=== PATIENT | male | born 1960 | race Caucasian/White ===

== ENCOUNTER 2018-01-24 00:54 | Inpatient (IN) | payer OTHER, MEDICARE ==
[~2018-01-24] VITALS: Ht 188 cm; Wt 143.5 kg
[~2018-01-24 00:54] MED LIST: BUPROPION HCL150 M4 PO; COREG 6.256.25 MG PO; GLUCOPHAGE1000 MG PO; LANTUS INS100 UNITS/ SC; LANTUS SOLOS100 U/ML SC; LASIX40 MG PO; METFORMIN HCL500 MG PO; NORCO 325 MG-101 TAB PO; PRINIVIL 5MG5 MG PO
--- NOTE | 2018-01-24 08:08 | Patient Discharge Instructions ---
Discharge Instructions General Discharge Information You were seen/treated for: Morbid Obesity BMI 41, CHUY, DM, CHF You had these procedures: Surgery Date: 01/24/18 Name of Procedure: Laparoscopic Sleeve Gastrectomy Watch for these problems: FEVER>101.3, INCREASED PAIN, REDNESS/SWELLING/DRAINAGE, DIZZINESS, SHORTNESS OF BREATH, CHEST PAINS No bath, but you may shower: Yes Other wound care: OK TO REMOVE OUTER DRESSINGS. LEAVE WHITE STERI STRIPS IN PLACE. KEEP INCISIONS CLEAN & DRY. Special Instructions: CONTINUE LOVENOX INJECTIONS DIRECTED Diet Continue normal diet: No Recommended Diet: Bariatric Additional DIET Information: WEEKLY BARIATRIC STAGE DIET ADVANCEMENTS TOLERATED, DIRECTED Activity Full Activity/No Limits: No Activity Self Limited: Yes Pounds, do NOT lift more than: 10 Other activity limits: NO HEAVY LIFTING. NO STRENUOUS ACTIVITY. Acute Coronary Syndrome Inclusion Criteria At DC or during hospital stay patient has or had the following: ACS DIAGNOSIS No Discharge Core Measures Meds if any: Prescribed or Continued at Discharge Meds if any: NOT Prescribed or Continued at Discharge Congestive Heart Failure Inclusion Criteria At DC or during hospital stay patient has or had the following: CHF DIAGNOSIS No Discharge Core Measures Meds if any: Prescribed or Continued at Discharge Meds if any: NOT Prescribed or Continued at Discharge Cerebrovascular accident Inclusion Criteria At DC or during hospital stay patient has or had the following: CVA/TIA Diagnosis No Discharge Core Measures Meds if any: Prescribed or Continued at Discharge Meds if any: NOT Prescribed or Continued at Discharge Venous thromboembolism Inclusion Criteria VTE Diagnosis No VTE Type NONE VTE Confirmed by (Test) NONE Discharge Core Measures - Per Current guidelines, there needs to be overlap - treatment for the first 5 days of Warfarin therapy. - If discharged on Warfarin prior to 5 days of - overlap therapy, the patient will need to be - assessed for post discharge needs including - *Post discharge parental anticoagulation - *Warfarin and/or parental anticoagulation education - *Follow up date to check INR post discharge At least 5 days overlap therapy as Inpatient No Meds if any: Prescribed or Continued at Discharge Note: Overlap Therapy is Warfarin and Anticoagulant Meds if any: NOT Prescribed or Continued at Discharge
--- NOTE | 2018-01-24 08:09 | Admission Core Measures ---
Acute Coronary Syndrome (CM) ACS Core Measures Acute Coronary Syndrome Diagnosis No Congestive Heart Failure (NEW) CHF Core Measures Congestive Heart Failure Diagnosis No Cerebrovascular Accident (NEW) CVA Core Measures CVA/TIA Diagnosis No Venous Thromboembolism VTE Core Navin (View Protocol) VTE Risk Factors Surgery No Mechanical VTE Prophylaxis d/t N/A MechProphylax Ordered No VTE Pharm Prophylaxis d/t NA PharmProphylax ordered Problem List As ranked by this Provider includes Assessment & Plan 1. S/P laparoscopic sleeve gastrectomy 2. Morbid obesity 3. Diabetes 4. Hypertension HOME MEDS Home Med List Acetaminophen/Hydrocodone Bi ([place] 325 MG-10 MG) 1 TAB TAB 1 TAB PO 4 TIMES/ DAY PAIN CONTROL (Reported) BUPROPION HCL (Bupropion HCl Sr) 150 MG TABLET.ER 1 TAB PO BID DEPRESSION ( Reported) Carvedilol (Coreg) 6.25 MG TAB 1 TAB PO BID [facility] Furosemide (Lasix) 40 MG TAB 1 TAB PO DAILY [facility] Insulin-Lantus (Lantus Insulin) 100 UNITS/ML MARIYA 0 SC SEE ADMIN CRITERIA Diabetes Lisinopril (Prinivil) 5 MG TAB 1 TAB PO DAILY [facility] Metformin Hydrochloride (Glucophage) 1,000 MG TAB 1 TAB PO BID Diabetes
--- NOTE | 2018-01-24 08:11 | Surg Short-stay <48hrs Dis Sum ---
Visit Information Visit Dates Admission Date: 01/24/18 Discharge Date: 01/25/18 Surgical Short Stay DC Summary Admission Diagnosis: Morbid Obesity (BMI 41), CHUY, DM, CHF Final Diagnosis: same as above, s/p Surgery Date: 01/24/18 Name of Procedure: Laparoscopic Sleeve Gastrectomy Procedure(s): Surgery Date: 01/24/18 Name of Procedure: Laparoscopic Sleeve Gastrectomy Summary/Significant Findings: Electively scheduled laparoscopic sleeve gastrectomy on 01/24/18 by , for history of morbid obesity (BMI 41), CHUY, DM, and CHF. Started on stage 1 bariatric diet post-operatively. Accuchecks were monitored during his hospitalization, while his metformin was being held. Coreg was continued, but his lasix and lisinopril were intentionally held, with close monitoring of his blood pressure. Lovenox teaching was done prior to discharge home, according to his pre-op risk assessment recommendations. He was discharged home once he was tolerating a bariatric diet and pain controlled with oral medications. Condition at Discharge: STABLE Discharge Disposition: home or self care Discharge instructions provided to patient/family: Yes Post discharge follow-up plan: ONE WEEK FOLLOW UP WITH CONTINUE LOVENOX INJECTIONS DAILY, DIRECTED Copies to: Deo HANEY,Wade Vargas
--- NOTE | 2018-01-24 09:38 | Operative Report ---
Operative/Inv Procedure Report Surgery Date: 01/24/18 Name of Procedure: Laparoscopic Sleeve Gastrectomy Pre-Operative Diagnosis: Morbid Obesity BMI 41, CHUY, DM, CHF Post-Operative Diagnosis: Same Estimated Blood Loss: less than 50ml Surgeon/Entertainment Manager: Jorge Dominique DO Anesthesia: general endotracheal tube IV Fluids: 1000 cc Drains: None Specimens: Stomach Complications: None Condition: Stable Operative Indication: This is a 57-year-old male that presented to the office for workup for bariatric surgery. After appropriate workup was completed I discussed with the patient the band, the sleeve, and the gastric bypass. The patient chose to undergo a sleeve gastrectomy. All risks including but not limited to bleeding, infection, leak, stricture, injury to surrounding bowel/esophagus/stomach/liver/spleen, long-term reflux, DVT/PE, and mortality of 09/999 patients were discussed in detail. The patient understood everything and decided to proceed. Operative/Procedure Note Note: The patient was brought to the operating room and placed on the operating room table in supine position. Venodyne stockings were placed and adequate general endotracheal anesthesia was obtained. The patient was prepped and draped in standard surgical fashion. Began the procedure by making a 2 cm transverse incision supraumbilically and slightly to the left of the midline. Then using a 12 mm clear Visiport and a 10 mm 0 laparoscope, the abdominal cavity was accessed. Great care was taken to go through the anterior rectus sheath, the posterior rectus sheath, and through the peritoneum. Once we entered the peritoneum the abdominal cavity was insufflated to 15 mmHg. Upon initial examination no obvious gross pathology was seen. Accessory trocars were placed, 5 mm in the epigastrium for the Marcelino liver retractor. The retractor was inserted and the liver was retracted anteriorly exposing the hiatus, no hiatal hernia was seen. 5 mm ports were placed in the right and left upper quadrant, a 5 mm left lateral port, and a 15 mm right lateral port. Began the procedure by mobilizing the greater curvature of the stomach approximately 7 cm from the pylorus. Once the retrogastric space was reached the whole greater curvature was mobilized maintaining hemostasis using Harmonic scalpel. Full hiatal dissection was performed, no hiatal hernia was seen. Posterior adhesions were taken down using Harmonic scalpel as well. Once the stomach was adequately mobilized a 38 Afghan bougie was inserted and placed along the lesser curvature of the stomach. Once the bougie was in the appropriate position we began creating our sleeve, two 60 mm black staple loads with seamguard followed by three 60 mm purple staple loads with seamguard as well. Great care was taken to leave ample room at the incisura angularis, to prevent any twisting or kinking of the sleeve, to stay lateral to the esophagogastric fat pad, and to do a full fundal excision. At the completion of the staple line the staple line was examined, it appeared intact and no obvious bleeding was noted. The bougie was removed, the sleeve was lying nicely without any twisting or kinking. The resected stomach was removed through the right lateral port site. The port and the left upper quadrant were irrigated until clear. All ports were removed under direct visualization no obvious bleeding was noted. The 15 mm port site fascia was closed using 0 Vicryl suture. The skin was closed using 4-0 Monocryl. Steri-Strips and dressings were placed. The patient was successfully extubated and transferred to the recovery room in stable condition. The patient tolerated the procedure well with no complications. Findings: No hiatal hernia, 38 Fr bougie CC: Wade Desouza MD
[2018-01-24 11:00] VITALS: BP 122/72
[2018-01-24 11:30] VITALS: BP 122/72
[2018-01-24] MEDS ORDERED: LOVENOX40 MG/0.1 SC (12:34)
[2018-01-24] MEDS ORDERED: PROTONIX40 M3 PO (12:34)
--- NOTE | 2018-01-24 13:43 | PN- Bariatrics ---
Subjective Subjective: POST-OP NOTE Reports nausea earlier, but currently only with epigastric discomfort. Reports pain worse with drinking. Out of bed without dizziness. No shortness of breath. No chest pains. Objective Vital Signs and I&Os Vital Signs Date Time Temp Pulse Resp B/P B/P Pulse O2 O2 Flow FiO2 Mean Ox Delivery Rate 01/24 1130 97.5 69 20 122/72 94 Room Air 01/24 1100 94 Room Air 01/24 1100 94 Room Air 01/24 1100 94 Room Air Intake & Output 01/24 1600 01/24 0800 01/24 0000 01/23 1600 01/23 0800 01/23 0000 Intake Total 125 Output Total 0 Balance 125 Intake, IV 125 Intake, Oral 0 Number 0 Bowel Movements Output, Urine 0 Patient 298 lb 309 lb Weight Weight Bed scale Measurement Method Physical Exam: General - alert & oriented. sleepy. comfortable. no acute distress Lungs - clear bilaterally Cardiac - s1s2. reg Abdomen - obese. soft. dressings c/d/i. no drains. expected luis-incisional tenderness Extremities - warm bilaterally. no c/c/e. calves soft and nontender b/l. athrombics active b/l. Current Medications: Current Medications Sig/Shelia Start time Last Medication Dose Route Stop Time Status Admin Acetaminophen 1,000 MG Q6H 01/24 1400 AC N/A 1 UNIT IV 01/25 0814 Bupropion HCl 150 MG BID 01/24 2100 AC PO Carvedilol 6.25 MG BID 01/24 2100 AC PO Cefazolin Sodium 3,000 MG IQ8 01/24 1600 CAN IV 01/25 0001 Cefazolin Sodium 3,000 MG IQ8 01/24 1600 AC Sodium Chloride 100 ML IV 01/25 0029 Cefazolin Sodium 3,000 MG ONCE 01/24 0000 DC IV 01/24 2359 Dextrose/Sodium 1,000 ML Q8H 01/24 1115 AC 01/24 Chloride IV 1154 Heparin Sodium 5,000 UNIT Q8 01/24 1400 AC (Porcine) SC Heparin Sodium 0 .STK-MED ONE 01/24 0716 DC (Porcine) .ROUTE Heparin Sodium 5,000 UNIT ONCE 01/24 0000 DC (Porcine) SC 01/24 2359 Hydrocodone Bitart/ 15 ML Q6P PRN 01/24 1115 AC 01/24 Acetaminophen PO 1152 Insulin Aspart 0 Q6 01/24 1200 AC 01/24 SC 1201 Morphine Sulfate 2 MG Q3P PRN 01/24 1115 AC IV Ondansetron HCl 4 MG Q6P PRN 01/24 1115 AC IV Pantoprazole Sodium 40 MG DAILY 01/25 0900 AC IV Simethicone 40 MG Q6P PRN 01/24 1115 AC PO Assessment/Plan Assessment/Plan This 57 year old male with hx morbid obesity (BMI 41), ART, DM, and CHF, is POD# 0 s/p laparoscopic sleeve gastrectomy stage 1 bariatric diet as tolerated npo pmn for possible upper gi study in am pain control as ordered (iv tylenol / morphine prn / hycet prn) oob/ambulation hep sc - dvt ppx lovenox teaching for home (prescription given pre-op according to risk assessment) accuchecks / ss coverage. hold metformin hold lasix and lisinopril. continue coreg bid (with hold parameters) protonix - gi ppx f/u am labs IST / TRC ?cpap for art will d/w Core Measures Venous Thromboembolism VTE Risk Factors Surgery No Mechanical VTE Prophylaxis d/t N/A MechProphylax Ordered No VTE Pharm Prophylaxis d/t NA PharmProphylax ordered
[2018-01-24 14:03] VITALS: BP 136/62
[2018-01-24 21:08] VITALS: BP 114/70
[2018-01-25 06:42] VITALS: BP 124/74
--- NOTE | 2018-01-25 07:31 | PN- Bariatrics ---
See Addendum Subjective Subjective: Major complaint is epigastric pain. Received Tums over night without relief.Subsequently had Maalox with better improvement. States that morphine wears off within 2 hrs. Ambulated in zhou several times last night. He had stage 1 yesterday but no nausea Objective Vital Signs and I&Os Vital Signs Date Time Temp Pulse Resp B/P B/P Pulse O2 O2 Flow FiO2 Mean Ox Delivery Rate 01/25 0642 97.6 93 18 124/74 91 01/25 0600 Room Air 01/24 2200 94 Room Air 01/24 2116 85 114/70 01/24 2108 99.0 85 18 114/70 92 Room Air 01/24 1600 Room Air 01/24 1420 Room Air 01/24 1403 97.9 72 20 136/62 93 Room Air 01/24 1200 93 Room Air 01/24 1130 97.5 69 20 122/72 94 Room Air 01/24 1100 94 Room Air 01/24 1100 94 Room Air 01/24 1100 94 Room Air Intake & Output 01/25 0800 01/25 0000 01/24 1600 01/24 0800 01/24 0000 01/23 1600 Intake Total 750 1240 515 Output Total 925 0 Balance 750 315 515 Intake, IV 750 1075 500 Intake, Oral 0 165 15 Number 0 0 Bowel Movements Output, Urine 925 0 Patient 316 lb 298 lb 309 lb Weight Weight Bed scale Measurement Method Alert, oriented obese male, no distress. Lungs clear bilat, distant breath sounds COR regular. Abdomen obese, soft, port sites C/D/I.Appropriately tender. Extr. without edema. Assessment/Plan Assessment/Plan 57 y o male with hx of CHF,morbid obesity, DM, HTN, s/p lap. gastric sleeve POD# 1 Stable hemodynamics, acceptable vital signs.Clinically looks well. Major issues is pain /epigastric discomfort, heartburns with some relief with Maalox Will go ahead with UGI series today. I suspect some of pain is related to gas pains. I encouraged increasing ambulation. Cont. IV Tylenol( last dose this morning), cont.oral narcotics( taking for baseline back pain) and morphine q 3 hrs for breakthrough pain.I will add a dose of Toradol this morning. On chemical DVT prophylaxis Will follow blood work results. Periop abx completed. I anticipate discharge later today or tomorrow depending on clinical progression. Core Measures Venous Thromboembolism VTE Risk Factors Surgery No Mechanical VTE Prophylaxis d/t N/A MechProphylax Ordered No VTE Pharm Prophylaxis d/t NA PharmProphylax ordered
[2018-01-25 08:30] LABS: ABSOLUTE BASOPHIL COUNT 0 /CUMM (0.0-0.2); ABSOLUTE EOSINOPHIL COUNT 0 /CUMM (0.0-0.7); ABSOLUTE GRANULOCYTE CT 7.8 /CUMM (1.4-6.5); ABSOLUTE LYMPH COUNT 1.8 /CUMM (1.2-3.4); ABSOLUTE MONOCYTE COUNT 0.8 /CUMM (0.10-0.60); BASOPHIL % 0.2 % (0.0-2.0); EOSINOPHIL % 0.2 % (0-5); HEMATOCRIT 42.7 % (42-52); MEAN CORPUSCULAR HGB 32.8 PG (27.0-31.0); MEAN CORPUSCULAR HGB CONC 34.5 G/DL (33.0-37.0); MEAN CORPUSCULAR VOLUME 95.1 FL (80.0-94.0); MEAN PLATELET VOLUME 8.4 FL (7.4-10.4); PLATELET COUNT 182 /CUMM (130-400); RBC DISTRIBUTION WIDTH 14.6 % (11.5-14.5); RED BLOOD CELL CT 4.49 /CUMM (4.70-6.10); WHITE BLOOD CELL COUNT 10.4 /CUMM (4.8-10.8)
[2018-01-25] MEDS ORDERED: FARXIGA10 M1 PO (11:35)
[2018-01-25] MEDS ORDERED: ENTRESTO 97 MG1 EACH PO (11:36)
[2018-01-25] MEDS ORDERED: TRULICITY1.5 MG/0.5 SC (11:37)
[2018-01-25] MEDS ORDERED: EPLERENONE25 M1 PO (11:38)
[2018-01-25] MEDS ORDERED: LYRICA100 M1 PO (11:38)
[2018-01-25] MEDS ORDERED: HYDROCODON-ACET15 ML PO (11:48)
--- NOTE | 2018-01-25 12:01 | RADIOLOGY REPORT ---
EXAMINATION: FLUOROSCOPY UPPER GI WITH GASTROGRAFIN WITH KUB CLINICAL INFORMATION: 1 day status post gastric sleeve procedure. Postoperative evaluation. COMPARISON: None. TECHNIQUE: A preliminary commercial finance manager view of the abdomen was performed. A limited Gastrografin upper GI study was performed using 30 ml of Gastroview with the patient in the semiupright position. Single spot film and 2 cine fluoroscopy runs were acquired. FINDINGS: The preliminary commercial finance manager view of the abdomen demonstrates postsurgical suture line in the epigastric region. Normal bowel gas pattern is seen without abnormal bowel distention noted. Esophageal distensibility and motility is normal. The GE junction is located below the level of the diaphragm and no GE reflux seen. The remnant gastric pouch is normal with no abnormal distention or contrast leak seen. There is prompt emptying of contrast into the duodenum, which is unremarkable in appearance. FLUOROSCOPY TIME: 23 seconds. IMPRESSION: Unremarkable examination with no evidence of contrast leak or gastric outlet obstruction status post gastric sleeve procedure.
[2018-01-25 14:38] VITALS: BP 140/80
== END 2018-01-25 14:39 | DRG 620 ==
LOC: DELPENDDIS → 2NB 00:54 → SDA 00:54 → ENRESERV 10:21 → ENTRNSPT 10:52 → EDTRNSPT 10:57 → EDTRNSPTSTS 10:57 → 2NB 11:02 → CMPTRNSPT 11:09 → EDTRNSPT 11:09 → ENPENDDIS 01-25 09:47 → ENTRNSPT 01-25 14:26 → 2NB 01-25 14:39 → CMPTRNSPT 01-25 15:08
PROVIDERS: Physician Assistant
PROC: 0DB64Z3 Excision of Stomach, Percutaneous Endoscopic Approach, Vertical (ICD-10-PCS; principal; 2018-01-24)
PROC: 3E0T3BZ Introduction of Anesthetic Agent into Peripheral Nerves and Plexi, Percutaneous Approach (ICD-10-PCS; principal; 2018-01-24)
DX: E66.01 Morbid (severe) obesity due to excess calories (principal); I42.0 Dilated cardiomyopathy; E11.8 Type 2 diabetes mellitus with unspecified complications; I50.9 Heart failure, unspecified; I11.0 Hypertensive heart disease with heart failure; Z68.41 Body mass index [BMI] 40.0-44.9, adult; K76.0 Fatty (change of) liver, not elsewhere classified; I48.91 Unspecified atrial fibrillation; Z79.4 Long term (current) use of insulin; Z79.84 Long term (current) use of oral hypoglycemic drugs; G47.33 Obstructive sleep apnea (adult) (pediatric); E78.5 Hyperlipidemia, unspecified; F32.9 Major depressive disorder, single episode, unspecified
CPT/HCPCS: 2NBP; 36592; 74240; 82436; C9399; J0131; J0690; J1100; J1644; J1885; J2405; J3490; J7042

== ENCOUNTER 2018-02-03 14:10 | Inpatient (IN) | payer OTHER, MEDICARE ==
[~2018-02-03] VITALS: Ht 194.3 cm; Wt 126.6 kg
[~2018-02-03 14:10] MED LIST changes: +ENTRESTO 97 MG1 EACH PO; +EPLERENONE25 M1 PO; +FARXIGA10 M1 PO; +HYDROCODON-ACET15 ML PO; +LOVENOX40 MG/0.1 SC; +LYRICA100 M1 PO; +PROTONIX40 M3 PO; +TRULICITY1.5 MG/0.5 SC
[2018-02-03 15:14] LABS: ABSOLUTE BASOPHIL COUNT 0 /CUMM (0.0-0.2); ABSOLUTE EOSINOPHIL COUNT 0.2 /CUMM (0.0-0.7); ABSOLUTE GRANULOCYTE CT 5.6 /CUMM (1.4-6.5); ABSOLUTE LYMPH COUNT 2.5 /CUMM (1.2-3.4); ABSOLUTE MONOCYTE COUNT 0.8 /CUMM (0.10-0.60); BASOPHIL % 0.5 % (0.0-2.0); GRANULOCYTE % 61.2 % (42.2-75.2); HEMATOCRIT 46.3 % (42-52); MEAN CORPUSCULAR HGB 32.6 PG (27.0-31.0); MEAN CORPUSCULAR HGB CONC 34.4 G/DL (33.0-37.0); MEAN CORPUSCULAR VOLUME 94.8 FL (80.0-94.0); MEAN PLATELET VOLUME 8.4 FL (7.4-10.4); PLATELET COUNT 258 /CUMM (130-400); RBC DISTRIBUTION WIDTH 14.3 % (11.5-14.5); RED BLOOD CELL CT 4.89 /CUMM (4.70-6.10); WHITE BLOOD CELL COUNT 9.2 /CUMM (4.8-10.8)
--- NOTE | 2018-02-03 15:16 | ED AMS/SEIZURE/WEAK/DIZZY ---
History of Present Illness General Chief Complaint: Dizziness Stated Complaint: DIZZINESS Source: patient Exam Limitations: no limitations Vital Signs & Intake/Output Vital Signs & Intake/Output Vital Signs Date Time Temp Pulse Resp B/P B/P Pulse O2 O2 Flow FiO2 Mean Ox Delivery Rate 02/04 0930 84 120/90 06/03 0926 82 120/90 06/03 0800 Room Air 06/03 0635 97.8 79 20 100/70 91 Room Air 06/03 0354 98.2 76 18 102/68 96 Room Air 06/03 0300 98.6 80 20 120/80 94 Room Air 06/02 2309 98.2 82 16 102/68 96 Room Air 06/02 2308 96 Room Air 06/02 2300 98.2 65 18 102/68 96 Room Air 06/02 2232 98.6 78 20 129/71 97 Room Air 06/02 2059 97.6 78 20 127/60 97 Room Air 06/02 1905 78 18 114/60 96 Room Air 06/02 1744 98.8 78 20 103/57 96 Room Air 06/02 1600 75 15 106/58 98 Room Air Room Air 06/02 1507 78 18 84/39 99 Room Air 06/02 1505 98 Room Air 06/02 1456 81 18 92/57 99 Room Air 06/02 1453 81 18 90/52 98 Room Air 06/02 1450 76 58/40 06/02 1414 96.0 82 15 78/52 98 Room Air Room Air ED Intake and Output /03 0000 06/02 1200 Intake Total Output Total 1430 Balance -1430 Output, Urine 1430 Patient 301 lb Weight Weight Bed scale Measurement Method Allergies Coded Allergies: NSAIDS (Non-Steroidal Anti-Inflamma (GASTRIC SLEEVE 02/03/18) Reconcile Medications Bupropion HCl (Bupropion HCl Sr) 150 MG TABLET.ER 1 TAB PO BID DEPRESSION ( Reported) Carvedilol 25 MG TABLET 1.5 TAB PO BID HEART/BP (Reported) Dapagliflozin Propanediol (Farxiga) 10 MG TABLET 1 TAB PO DAILY DM (Reported) Eplerenone 25 MG TABLET 1 TAB PO DAILY BP (Reported) Furosemide 40 MG TABLET 1 TAB PO BID DIURETIC (Reported) Lidocaine 5 % ADH..PATCH 1 PAT TOP DAILY PRN PAIN (Reported) Metformin HCl 500 MG TABLET 1 TAB PO BID DM (Reported) Oxycodone HCl/Acetaminophen (Percocet 7.5-325 MG Tablet) 7.5 MG-325 MG TABLET 1 TAB PO 4 TIMES/DAY PAIN (Reported) Pregabalin (Lyrica) 100 MG CAPSULE 1 CAP PO DAILY PAIN (Reported) OPEN CAPSULE AND TAKE WITH APPLESAUCE OR EQUIVALENT FOOD Sacubitril/Valsartan (Entresto 97 MG-103 MG Tablet) 97 MG-103 MG TABLET 1 TAB PO BID HEART (Reported) Triage Note: PT TO ED WITH FOR LOW BLOOD PRESSURE (50'S SYSTOLIC AT HOME) 79/52 IN TRIAGE. PT RECENTLY ADMITTED TO HOSPITAL FOR GASTRIC SLEEVE. ALSO STARTED ON LASIX FOR CHF. OVER THE LAST TWO DAYS PT HAS HAD LOW BLOOD PRESSURE AND GENERALIZED "I JUST DON'T FEEL WELL." DENIES ABD PAIN OR NAUSEA. AFEBRILE IN TRIAGE. Triage Nurses Notes Reviewed? yes Onset: last night Duration: continues in ED Timing: no prior history No Modifying Factors: none HPI: 55-year-old male presents emergency department with history significant for bariatric surgery about [address] Davies. He has been on a strict liquid diet. Last night he began feeling dizzy and also extremely tired. He had gone to sleep and when he woke up this morning the symptoms continued. His took his blood pressure at home which was 87/55. He has a history of congestive heart failure for which he sees pharmacology associate Dr. Pastrana. He is currently taking carvedilol as a daily medication. In the emergency department he states that the symptoms are continued, he denies any chest pain, shortness of breath, nausea/vomiting. He does admit to having some diarrhea. (Madison BOYCE,[facility]) Past History Travel History Traveled to [place] past 21 day No Medical History Any Pertinent Medical History? see below for history Neurological: NONE EENT: NONE Cardiovascular: CHF, "FAST HEART RATE, LOW BLOOD PRESSURE" Respiratory: NONE Gastrointestinal: GASTRIC SLEEVE Hepatic: NONE Renal: NONE Musculoskeletal: spinal stenosis, CHRONIC BACK PAIN Psychiatric: bipolar disease Endocrine: diabetes Blood Disorders: NONE Cancer(s): NONE BICYCLE MECHANIC/Reproductive: NONE History of MRSA: No History of VRE: No History of CDIFF: No Surgical History Surgical History: BACK SURGERY Psychosocial History Who do you live with Spouse Services at Home None What is your primary language Yakut Tobacco Use: Never used ETOH Use: denies use Illicit Drug Use: denies illicit drug use Family History Family History, If Any: MOTHER FH: diabetes mellitus SISTER FH: diabetes mellitus Hx Contributory? No (Meliza Payne) Review of Systems Review of Systems Constitutional: Reports: see HPI. EENTM: Reports: no symptoms. Respiratory: Reports: no symptoms. Cardiovascular: Reports: see HPI. GI: Reports: see HPI. Genitourinary: Reports: no symptoms. Musculoskeletal: Reports: no symptoms. Skin: Reports: no symptoms. Neurological/Psychological: Reports: no symptoms. Hematologic/Endocrine: Reports: no symptoms. Immunologic/Allergic: Reports: no symptoms. All Other Systems: Reviewed and Negative (Meliza Payne) Physical Exam Physical Exam General Appearance: well developed/nourished, alert, awake, moderate distress Head: atraumatic, normal appearance Eyes: Bilateral: normal appearance. Ears, Nose, Throat: hearing grossly normal Neck: normal inspection, full range of motion Respiratory: normal breath sounds, chest non-tender, no respiratory distress Gastrointestinal: normal bowel sounds, soft, non-tender, post-surgical scars s/p bariatric surgery healing well. Back: normal inspection, normal range of motion Extremities: normal range of motion Neurologic/Psych: no motor/sensory deficits, awake, alert, oriented x 3, normal mood/affect Skin: intact, normal color, warm/dry Core Measures ACS in differential dx? Yes CVA/TIA Diagnosis No Sepsis Present: No Sepsis Focused Exam Completed? No (Meliza Payne) Progress Differential Diagnosis: arrythmia, benign positional vertigo, dehydration, electrolyte imbalance, hypoglycemia, hypotension Plan of Care: Orders Procedure Date/time Status BASIC ELECTROLYTES PLUS BUN&CR 02/05 0600 Active Bariatric Diet - Stage 2 02/04 B Active BASIC ELECTROLYTES PLUS BUN&CR 02/04 1300 Active US-RENAL/KIDNEY 02/04 1126 Active MISSING MEDICATION FORM 02/04 0032 Active Regular Diet 02/03 D Complete Weight 02/03 2247 Active Vital Signs 02/03 2247 Active Teach/Educate 02/03 2247 Active Pain Treatment and Response 02/03 2247 Active Nutritional Intake, Monitor 02/03 2247 Active Isolation 02/03 2247 Active Intake & Output 02/03 2247 Active Patient Care Conference 02/03 2247 Active Activity/Ambulation 02/03 2247 Active URINE OSMOLALITY 02/03 2111 Active URINE LYTES, SPOT 02/03 2111 Active Patient Data 02/03 2103 Active FingerStick- Glucose 02/03 1935 Active Pathway - chart 02/03 1848 Active House Staff 02/03 1848 Active Patient Data 02/03 1848 Active LACTIC ACID 02/03 1755 Active Patient Data 02/03 1741 Active Patient Data 02/03 1725 Active OXYGEN SETUP (GEN) 02/03 1611 Active Saline Lock 02/03 1611 Active Admit to inpatient 02/03 1611 Active Vital Signs 02/03 1611 Active Activity/Ambulation 02/03 1611 Active Code Status 02/03 1611 Active Add-on Test (ER Only) 02/03 1504 Active SERUM OSMOLALITY 02/03 1501 Complete ACETONE 02/03 1501 Complete TROPONIN LEVEL 02/03 1455 Complete MAGNESIUM 02/03 1455 Complete LIPASE 02/03 1455 Complete LACTIC ACID 02/03 1455 Complete COMPREHENSIVE METABOLIC PANEL 02/03 1455 Complete CBC WITHOUT DIFFERENTIAL 02/03 1455 Complete B-TYPE NATRIURETIC PEP (BNP) 02/03 1455 Complete AMYLASE 02/03 1455 Complete Intake & Output 02/03 1440 Active EKG 02/03 1418 Active Lab Add-on Test 02/03 UNK Active VTE Mechanical Prophylaxis 02/03 UNK Active Vital Signs 02/03 UNK Complete Telemetry/Dielectric Testing Machine Operator 02/03 UNK Active Intake & Output 02/03 UNK Complete FingerStick- Glucose 02/03 UNK Complete Current Medications Sig/Shelia Start time Last Medication Dose Stop Time Status Admin Insulin Aspart 0 TIDAC 02/04 0800 AC (NovoLOG) Oxycodone HCl 7.5 MG Q6P PRN 02/04 0430 AC 02/04 (Roxicodone) 1034 Acetaminophen 1,000 MG Q6P PRN 02/04 0030 AC 02/04 (Ofirmev) 02/05 0029 0646 N/A 1 UNIT (No Carrier) Heparin Sodium 5,000 UNIT Q8 02/03 2200 AC 02/04 (Porcine) 0647 Bupropion HCl 150 MG BID 02/03 2100 AC 02/04 (Wellbutrin SR) 0923 Magnesium Sulfate 2 GM ONCE ONE 02/03 1615 CAN 02/03 1630 Laboratory Tests 02/04/18 1310: Sodium Pending, Potassium Pending, Chloride Pending, Carbon Dioxide Pending, Anion Gap Pending, BUN Pending, Creatinine Pending, BUN/Creatinine Ratio Pending 02/03/18 2111: Urine Color Cancelled, Urine Clarity Cancelled, Urine pH Cancelled, Ur Specific [place] Cancelled, Urine Protein Cancelled, Urine Ketones Cancelled, Urine Nitrite Cancelled, Urine Bilirubin Cancelled, Urine Urobilinogen Cancelled, Ur Leukocyte Esterase Cancelled, Ur Microscopic Cancelled, Urine Hemoglobin Cancelled, Urine Glucose Cancelled 02/03/18 1501: Anion Gap 17 H, Estimated GFR 37 L, BUN/Creatinine Ratio 13.2, Glucose 140 H, Serum Osmolality 295, Lactic Acid 1.1, Calcium 9.7, Magnesium 1.2 L, Total Bilirubin 1.1, AST 32, ALT 49, Alkaline Phosphatase 43, Troponin I < 0.01, Pro-B -Natriuretic Pept 195 H, Total Protein 7.2, Albumin 4.2, Globulin 3.0, Albumin/ Globulin Ratio 1.4, Amylase 44, Lipase 61, CBC w Diff NO MAN DIFF REQ, RBC 4.89, MCV 94.8 H, MCH 32.6 H, MCHC 34.4, RDW 14.3, MPV 8.4, Gran % 61.2, Lymphocytes % 27.1, Monocytes % 9.2, Eosinophils % 2.0, Basophils % 0.5, Absolute Granulocytes 5.6, Absolute Lymphocytes 2.5, Absolute Monocytes 0.8 H, Absolute Eosinophils 0.2, Absolute Basophils 0, Acetone Level NEGATIVE 58-year-old male presented to the emergency department reporting bariatric surgery with Dr. Davies just over a week ago. He has been on a liquid diet. He had reported last night in dizzy and tired, and this morning his checked his blood pressure which was 87/55. In the emergency department his blood pressure was 50/40 and he was started on IV fluids. Patient requesting percocet at bedside d/t chronic back pain for which he didn't take his daily percocet today. D/t pressures, given patient tylenol IV. Mg low at 1.2 - patient given mag IV and also started on NS 125ml/hr. Bloodwork reveals acute kidney injury BUN 25, Cr 1.9, GFR 37. Spoke with hospitalist and admitting to the floor. Spoke with MOD Dr. Hernadez. who is aware. Patient and aware of plan. Diagnostic Imaging: Viewed by Me: Radiology Read. Discussed w/RAD: Radiology Read. Radiology Impression: PATIENT: NALLELY MAYNARD III PRESENT AGE: 58 PATIENT ACCOUNT NO: [id number] : 60 LOCATION: [facility] ORDERING PHYSICIAN: Meliza BOYCE SERVICE DATE: 02/03/185418 EXAM TYPE: RAD - XRY-PORTABLE CHEST XRAY EXAMINATION: XR PORTABLE CHEST CLINICAL INFORMATION: Dehydration. Fatigue and dizziness. COMPARISON: Chest x-ray from . TECHNIQUE: Portable frontal view of the chest was obtained. FINDINGS: The lower portion of the left lung is excluded from view. The imaged portions of the lungs are aerated. No obvious pleural effusions are seen, though assessment is again limited due to incomplete visualization of the costophrenic sulci. The cardiac silhouette remains prominent. Mediastinal contours are normal. No acute osseous abnormality is seen. IMPRESSION: Slightly limited study with incomplete visualization of the costophrenic sulci and lower portion of the left lung base. Otherwise, no acute process. DICTATED BY: Wade Garcia MD DATE/TIME DICTATED :02/03/181622 WAITSTAFF CAPTAIN:INDER DATE/TIME TRANSCRIBED:02/03/181622 CONFIDENTIAL, DO NOT COPY WITHOUT APPROPRIATE AUTHORIZATION. < Electronically signed in Other Vendor System> SIGNED BY: Wade Garcia MD 02/03/181628 Initial ED EKG: normal axis, normal sinus rhythm (Meliza Payne) Departure Departure Disposition: STILL A PATIENT Condition: Stable Clinical Impression Primary Impression: Acute kidney injury Referrals: Wade Desouza MD (PCP/Family) Departure Forms: Customer Survey General Discharge Information Admission Note Documentation of Exam: Documentation of any treatments & extenuating circumstances including Concerns Regarding Discharge (functional status, medication knowledge or non-compliance, living conditions, etc.) that warrant an admission rather than observation: [ acute kidney injury, hypomagnesemia] (Meliza Payne) PA/REPORTING PROCESS CONSULTANT Co-Sign Statement Statement: ED Attending supervision documentation- x I saw and evaluated the patient. I have also reviewed all the pertinent lab results and diagnostic results. I agree with the findings and the plan of care as documented in the PA's/REPORTING PROCESS CONSULTANT's documentation. Weak poor oral intake on furosemide with hypotension, ALCIDES [] I have reviewed the ED Record and agree with the PA's/REPORTING PROCESS CONSULTANT's documentation. [] Additions or exceptions (if any) to the PAs/REPORTING PROCESS CONSULTANT's note and plan are summarized below: [] (Dev HANEY,Derek)
--- NOTE | 2018-02-03 16:29 | RADIOLOGY REPORT ---
EXAMINATION: XR PORTABLE CHEST CLINICAL INFORMATION: Dehydration. Fatigue and dizziness. COMPARISON: Chest x-ray from 01/16/2018. TECHNIQUE: Portable frontal view of the chest was obtained. FINDINGS: The lower portion of the left lung is excluded from view. The imaged portions of the lungs are aerated. No obvious pleural effusions are seen, though assessment is again limited due to incomplete visualization of the costophrenic sulci. The cardiac silhouette remains prominent. Mediastinal contours are normal. No acute osseous abnormality is seen. IMPRESSION: Slightly limited study with incomplete visualization of the costophrenic sulci and lower portion of the left lung base. Otherwise, no acute process.
[2018-02-03] MEDS ORDERED: CARVEDILOL6.25 M1 PO (16:53)
[2018-02-03] MEDS ORDERED: LIDOCAINE1 EACH TOP (16:54)
[2018-02-03] MEDS ORDERED: METFORMIN HCL500 M3 PO (16:54)
[2018-02-03] MEDS ORDERED: EPLERENONE25 M1 PO (16:55)
[2018-02-03] MEDS ORDERED: FARXIGA10 M1 PO (16:55)
[2018-02-03] MEDS ORDERED: FUROSEMIDE40 M1 PO (16:56)
[2018-02-03] MEDS ORDERED: CARVEDILOL25 M1 PO (16:56)
[2018-02-03] MEDS ORDERED: ENTRESTO 97 MG1 EACH PO (16:56)
[2018-02-03] MEDS ORDERED: PERCOCET 7.5-31 EACH PO (16:56)
--- NOTE | 2018-02-03 18:15 | History & Physical ---
General Information and HPI Allergies/Medications Allergies: Coded Allergies: NSAIDS (Non-Steroidal Anti-Inflamma (GASTRIC SLEEVE 02/03/18) Home Med list Bupropion HCl (Bupropion HCl Sr) 150 MG TABLET.ER 1 TAB PO BID DEPRESSION ( Reported) Carvedilol 25 MG TABLET 1.5 TAB PO BID HEART/BP (Reported) Dapagliflozin Propanediol (Farxiga) 10 MG TABLET 1 TAB PO DAILY DM (Reported) Eplerenone 25 MG TABLET 1 TAB PO DAILY BP (Reported) Furosemide 40 MG TABLET 1 TAB PO BID DIURETIC (Reported) Lidocaine 5 % ADH..PATCH 1 PAT TOP DAILY PRN PAIN (Reported) Metformin HCl 500 MG TABLET 1 TAB PO BID DM (Reported) Oxycodone HCl/Acetaminophen (Percocet 7.5-325 MG Tablet) 7.5 MG-325 MG TABLET 1 TAB PO 4 TIMES/DAY PAIN (Reported) Pregabalin (Lyrica) 100 MG CAPSULE 1 CAP PO DAILY PAIN (Reported) OPEN CAPSULE AND TAKE WITH APPLESAUCE OR EQUIVALENT FOOD Sacubitril/Valsartan (Entresto 97 MG-103 MG Tablet) 97 MG-103 MG TABLET 1 TAB PO BID HEART (Reported) Past History Travel History Traveled [facility] past 21 day No Medical History Neurological: NONE EENT: NONE Cardiovascular: CHF, "FAST HEART RATE, LOW BLOOD PRESSURE" Respiratory: NONE Gastrointestinal: GASTRIC SLEEVE Hepatic: NONE Renal: NONE Musculoskeletal: spinal stenosis, CHRONIC BACK PAIN Psychiatric: bipolar disease Endocrine: diabetes Blood Disorders: NONE Cancer(s): NONE THERAPIST/Reproductive: NONE History of MRSA: No History of VRE: No History of CDIFF: No Surgical History Surgical History: BACK SURGERY Past Family/Social History Family History Relations & Conditions if any MOTHER FH: diabetes mellitus SISTER FH: diabetes mellitus Psychosocial History Who Do You Live With? spouse Services at Home: None ETOH Use: denies use Illicit Drug Use: denies illicit drug use Functional Ability ADLs Independent: dressing, eating, toileting, bathing. Ambulation: independent IADLs Independent: shopping, housework, finances, food prep, telephone, transportation , medication admin. Core Measures/Misc (05/21) Cerebrovascular Accident CVA/TIA Diagnosis: No Sepsis (View protocol) If YES complete Sepsis Event Note If YES complete Sepsis Event Note
--- NOTE | 2018-02-03 18:45 | History & Physical ---
Mp HANEY,April 02/03/18 1838: General Information and HPI MD Statement: I have seen and personally examined NALLELY COOLEY III and documented this H&P. The patient is a 58 year old M who presented with a patient stated chief complaint of [low bp at home]. Source of Information: patient, family, old records Exam Limitations: no limitations History of Present Illness: This is a 50-year-old male with past medical history of HFrEF with EF 30-35, dilated cardiomyopathy no ICD on Entresto, morbid obesity status post lap gastric sleeve in January 2018, chronic back pain, diabetes, and hypertension. Patient was brought in by his to the ED for chief complaint of low blood pressures, reportedly systolic in the 70s-60s. Per pt he measures BP on a daily basis and yesterday he noted a double digit BP (around 90s systolic) for the first time since surgery. He usually runs around 120/80. He also noted some malaise, and weakness. When he woke up this morning he had BPs in 70s and then noted it dropping even further. She called Dr. Ramires's office but when the BP started dropping further she brought pt to ED. Since his sleeve pt has been on prescribed bariatric diet which is limited to liquids, he has lost over 30 lbs recently. He recently re-started his furosemide 40mg BID on MondayJanuary 29. He used to take lasix regularly but after surgery he was stopped temporarily. Only other med change has been the stopping of his diabetic medication othe than 500mg of metformin BID after sleeve. In triage he was noted to have blood pressure 79/52 and 58/40. Pt denies WHITE, no nausea, vomiting, abdomial pain, change in bladder or bowel movement, hematuria, hematochezia, change in appetite, recent illness, chest pain, palpitations, SOB, or LE edema. He does endorse dizziness, some blurry vision, malaise, and weakness. Soc hx pertinent for hx cocaine use 10 yrs ago, social etoh use and hx 10-15 ppd smoking hx and quit 3 yrs ago. Allergies/Medications Allergies: Coded Allergies: NSAIDS (Non-Steroidal Anti-Inflamma (GASTRIC SLEEVE 02/03/18) Home Med list Bupropion HCl (Bupropion HCl Sr) 150 MG TABLET.ER 1 TAB PO BID DEPRESSION ( Reported) Carvedilol 25 MG TABLET 1.5 TAB PO BID HEART/BP (Reported) Dapagliflozin Propanediol (Farxiga) 10 MG TABLET 1 TAB PO DAILY DM (Reported) Eplerenone 25 MG TABLET 1 TAB PO DAILY BP (Reported) Furosemide 40 MG TABLET 1 TAB PO BID DIURETIC (Reported) Lidocaine 5 % ADH..PATCH 1 PAT TOP DAILY PRN PAIN (Reported) Metformin HCl 500 MG TABLET 1 TAB PO BID DM (Reported) Oxycodone HCl/Acetaminophen (Percocet 7.5-325 MG Tablet) 7.5 MG-325 MG TABLET 1 TAB PO 4 TIMES/DAY PAIN (Reported) Pregabalin (Lyrica) 100 MG CAPSULE 1 CAP PO DAILY PAIN (Reported) OPEN CAPSULE AND TAKE WITH APPLESAUCE OR EQUIVALENT FOOD Sacubitril/Valsartan (Entresto 97 MG-103 MG Tablet) 97 MG-103 MG TABLET 1 TAB PO BID HEART (Reported) Compliance With Home Meds: UNKNOWN Past History Travel History Traveled to [facility] past 21 day No Medical History Neurological: NONE EENT: NONE Cardiovascular: CHF, "FAST HEART RATE, LOW BLOOD PRESSURE" Respiratory: NONE Gastrointestinal: GASTRIC SLEEVE Hepatic: NONE Renal: NONE Musculoskeletal: spinal stenosis, CHRONIC BACK PAIN Psychiatric: bipolar disease Endocrine: diabetes Blood Disorders: NONE Cancer(s): NONE HOSPITALITY TEAM MEMBER/Reproductive: NONE History of MRSA: No History of VRE: No History of CDIFF: No Surgical History Surgical History: BACK SURGERY Past Family/Social History Family History Relations & Conditions if any MOTHER FH: diabetes mellitus SISTER FH: diabetes mellitus Psychosocial History Who Do You Live With? spouse Services at Home: None ETOH Use: denies use Illicit Drug Use: denies illicit drug use Functional Ability ADLs Independent: dressing, eating, toileting, bathing. Ambulation: independent IADLs Independent: shopping, housework, finances, food prep, telephone, transportation , medication admin. Review of Systems Review of Systems Constitutional: Reports: see HPI. Exam & Diagnostic Data Last 24 Hrs of Vital Signs/I&O Vital Signs Date Time Temp Pulse Resp B/P B/P Pulse O2 O2 Flow FiO2 Mean Ox Delivery Rate 02/03 1744 98.8 78 20 103/57 96 Room Air 02/03 1600 75 15 106/58 98 Room Air Room Air 02/03 1507 78 18 84/39 99 Room Air 02/03 1505 98 Room Air 02/03 1456 81 18 92/57 99 Room Air / 1453 81 18 90/52 98 Room Air / 1450 76 58/40 06/02 1414 96.0 82 15 78/52 98 Room Air Room Air Intake & Output 02/03 1600 06/02 0800 06/ 0000 Intake Total Output Total Balance Patient 130.635 kg Weight Weight Reported by Patient Measurement Method Physical Exam General Appearance Alert, Oriented X3, Cooperative, No Acute Distress Skin No Significant Lesion HEENT Atraumatic, PERRLA, EOMI Neck Supple Cardiovascular Regular Rate, Normal S1, Normal S2, No Murmurs Lungs Normal Air Movement Abdomen Soft, No Tenderness, 2 well healing incisions on mid and r. abd. ecchymosis on RLQ. Neurological Normal Speech, Strength at 5/5 X4 Ext, Normal Tone Extremities No Edema, Normal Pulses Last 24 Hrs of Labs/Gwyn: Laboratory Tests 02/03/18 1501: Anion Gap 17 H, Estimated GFR 37 L, BUN/Creatinine Ratio 13.2, Glucose 140 H, Lactic Acid 1.1, Calcium 9.7, Magnesium 1.2 L, Total Bilirubin 1.1, AST 32, ALT 49, Alkaline Phosphatase 43, Troponin I < 0.01, Ciq-P-Wncdeuqlabf Pept 195 H, Total Protein 7.2, Albumin 4.2, Globulin 3.0, Albumin/Globulin Ratio 1.4, Amylase 44, Lipase 61, CBC w Diff NO MAN DIFF REQ, RBC 4.89, MCV 94.8 H, MCH 32.6 H, MCHC 34.4, RDW 14.3, MPV 8.4, Gran % 61.2, Lymphocytes % 27.1, Monocytes % 9.2, Eosinophils % 2.0, Basophils % 0.5, Absolute Granulocytes 5.6, Absolute Lymphocytes 2.5, Absolute Monocytes 0.8 H, Absolute Eosinophils 0.2, Absolute Basophils 0 Assessment/Plan Assessment: ASSESSMENT:This is a 50-year-old male with past medical history of HFrEF with EF 30-35, dilated cardiomyopathy no ICD on Entresto, morbid obesity status post lap gastric sleeve in January 2018 who comes in for CC of malaise and hypotension. Anthony BP measured in ED was 58/40 and Cr was up to 1.9. I suspect that his hypotension precipitated a pre-renal state which was exacerbated by metformin and ARB. The etiology of his hypotension is likely due to a combination of recent surgery and decreased PO intake, the re-introduction of Lasix and increased urine output. VITALS: temp 96.8-98.8, pulse 76-82, RR15-20, blood pressure 84/39 to 106/58, satting 90% on room air Echocardiogram in December 2016 shows moderate left ventricular dilatation, mild concentric LV EF 30-35, stage I diastolic dysfunction. Mild left atrial dilatation, and mild mitral annular calcification with mild thickening of mitral valve leaflets. Labs: Normal CBC. BEP: BUN 25, creatinine 1.9, and ion gap 17, negative lactic acid, magnesium 1.2 , BNP 195, negative amylase and lipase, negative LFTs. Chest x-ray shows limited study with incomplete visualization of the costophrenic sulci and lower portion left lung base. No acute process noted. PLAN: Hypotension: Resolved with 2 bags IVF. Given low EF will stop at this point and encourage PO intake. If his BP continues to be low will give add'l fluid * Q4 BP * Hold all anti-hypertensives Ventricular ectopy: EKG shows trigemini and pt had frequent PVC on monitor. He states he doesn't have hx of abnml heart rhythm. He follows with Dr. Mak Ramires for HF. Mag was 1.2 on admission. * Monitor on Tele * Replete mag * Monitor electrolytes ALCIDES: Likely pre-renal. If does not improve with IVF can consider renal US. * Uosm * Sosm * Ulytes/FeNa Anion gap: Gap is 17. DDX likely renal failure. less likely DKA but will add acetone to labs. * Monitor BEP * Recheck labs in 4 hrs Depression: * Continue bupropion 150 mg daily CAD/hypertension: * Hold carvedilol 25 mg, 1.5 tab by mouth twice a day * Hold Epleronone * Hold Entresto Diabetes: * Hold metformin * Regular insulin sliding scale * Diabetic diet * FS * Check acetone Neuropathic pain/Back pain: * Hold Lyrica * he takes 7.5 of percocet 4x/day. Will hold off at this time. Bariatric diet FC Chem ppx As Ranked By This Provider Problem List: 1. S/P laparoscopic sleeve gastrectomy 2. Acute kidney injury Core Measures/Misc (05/21) Acute Coronary Syndrome ACS Diagnosis: No Congestive Heart Failure Congestive Heart Failure Diagnosis No Cerebrovascular Accident CVA/TIA Diagnosis: No VTE (View Protocol) VTE Risk Factors Acute Medical Illness No Mechanical VTE Prophylaxis d/t N/A MechProphylax Ordered No VTE Pharm Prophylaxis d/t NA PharmProphylax ordered Sepsis (View protocol) Sepsis Present: No If YES complete Sepsis Event Note If YES complete Sepsis Event Note Diomedes Mart MD 02/03/18 2158: Core Measures/Misc (05/21) Sepsis (View protocol) If YES complete Sepsis Event Note If YES complete Sepsis Event Note Attending MD Review Statement Attending Statement Attending MD Statement: examined this patient, discuss w/resident/PA/METAL ORGAN PIPE MAKER, agreed w/resident/PA/METAL ORGAN PIPE MAKER, discussed with nursing Attending Assessment/Plan: Mr. Cooley is a 58-year-old male with history of dilated cardiomyopathy with EF of 30-35%, on interest though, recent gastric sleeve surgery last month, chronic back pain, diabetes hypertension presents with complaints of low blood pressures recorded at home. Patient has been holding this furosemide since surgery, however that was recently restarted. On examination, initial blood pressure on arrival was systolic 70s to 80s, diastolic blood pressure in the 50s to 60s, however after IV fluid administration blood pressure improved to about systolic blood pressure 120. Heart rate of 78 afebrile saturating 90% on room air Assessment 1. Hypotension - that was symptomatic with lightheadedness dizziness 2. Acute kidney injury 3. Anion gap metabolic acidosis 4. Heart failure with reduced ejection fraction 5. Diabetes mellitus 6. S/P Gastric sleeve surgery 1 week ago 7. Ventricular trigeminy Plan Admit to telemetry Holding off on further IVF administration. Blood pressure better. Holding home antihypertensives (can be initiated once BP better in the AM). Avoid nephrotoxic medications. Will follow up on Uosm and Sosm and repeat BEP. Will consider Renal USG Will obtain Cardiology consultation. Inform Bariatric surgery team about his admission - patient has a post op appointment with Dr. Davies on monday Heparin for DVT prophylaxis
[2018-02-03 23:00] VITALS: BP 102/68
[2018-02-03 23:09] VITALS: BP 102/68
[2018-02-04] VITALS (7 sets, daily range): BP systolic 100–120; BP diastolic 68–90
--- NOTE | 2018-02-04 08:30 | PN- Housestaff ---
Any HANEY,Tuan 02/04/18 0830: Subjective Follow-up For: Hypotension ALCIDES Ventricular Ectopy Morbid obesity s/p gastric sleeve Tele-Events Since Last Visit: NSR: 70s to 80s, PVCs, Trigeminy, mutlifocal PVCs Subjective: Patient was seen and examined today. Patient reports that he feels signficantly better today. Denies lightheadedness, dizziness, chest pain, palpitations, shortness of breath, abdominal pain, n/v/c/d, dysuria/hematuria. Patient reports back pain controlled with current pain regimen. Review of Systems Constitutional: Reports: see HPI. Objective Last 24 Hrs of Vital Signs/I&O Vital Signs Date Time Temp Pulse Resp B/P B/P Pulse O2 O2 Flow FiO2 Mean Ox Delivery Rate 02/04 1444 98.1 89 20 110/70 95 06/03 0930 84 120/90 / 0926 82 120/90 / 0800 Room Air 06/03 0635 97.8 79 20 100/70 91 Room Air 06/03 0354 98.2 76 18 102/68 96 Room Air 06/03 0300 98.6 80 20 120/80 94 Room Air 06/02 2309 98.2 82 16 102/68 96 Room Air 06/02 2308 96 Room Air 06/02 2300 98.2 65 18 102/68 96 Room Air 06/02 2232 98.6 78 20 129/71 97 Room Air 06/02 2059 97.6 78 20 127/60 97 Room Air 06/02 1905 78 18 114/60 96 Room Air 06/02 1744 98.8 78 20 103/57 96 Room Air Intake & Output / 1600 06/03 0800 06/03 0000 Intake Total 730 220 Output Total 1430 Balance 730 220 -1430 Intake, IV 10 Intake, Oral 720 220 Output, Urine 1430 Patient 301 lb 301 lb Weight Weight Bed scale Bed scale Measurement Method Physical Exam General Appearance: Alert, Oriented X3, Cooperative, No Acute Distress Skin: No Rashes Skin Temp/Moisture Exam: Warm/Dry Sepsis Skin Exam (color): Normal for Ethnicity Cardiovascular: Regular Rate, Normal S1, Normal S2 Lungs: Clear to Auscultation, Normal Air Movement Abdomen: Normal Bowel Sounds, Soft, No Tenderness Neurological: Normal Speech, Strength at 5/5 X4 Ext, Normal Tone, Sensation Intact, Cranial Nerves 3-12 NL Extremities: No Clubbing, No Cyanosis, No Edema, Normal Pulses, No Tenderness/ Swelling Vascular: Normal Pulses, Pulses Symmetrical Assessment/Plan Assessment: 50-year-old male with past medical history of HFrEF with EF 30-35, dilated cardiomyopathy no ICD on Entresto, morbid obesity status post lap gastric sleeve in January 2018 who comes in for CC of malaise and hypotension. Anthony BP measured in ED was 58/40 and Cr was up to 1.9. I suspect that his hypotension precipitated a pre-renal state which was exacerbated by metformin and ARB. The etiology of his hypotension is likely due to a combination of recent surgery and decreased PO intake, the re-introduction of Lasix and increased urine output. PLAN: Hypotension: Resolved with 2 bags IVF. Given low EF will stop at this point and encourage PO intake. If his BP continues to be low will give add'l fluid * Q4 BP * Hold all anti-hypertensives Ventricular ectopy: EKG shows trigemini and pt had frequent PVC on monitor. He states he doesn't have hx of abnml heart rhythm. He follows with Dr. Mak Ramires for HF. Mag was 1.2 on admission. * Monitor on Tele * Replete mag * Monitor electrolytes * Cardiology consulted. Appreciate recommendations. Will continue to hold antihypertensives. Will follow up with Dr. Weber and Ike tomorrow. ALCIDES: Resolved. Likely pre-renal 2/2 to dehydration in setting of recent gastric sleeve and patient restarting lasix himself over past few days. Renal Ultrasound negative. Creatinine this afternoon improved to 1.0 * Continue to monitor creatinine * Avoid nephrotoxic agents * Strict I/O Anion gap: Gap is 17. DDX likely renal failure. Acetone negative. Resolved with fluid hydration. Hypokalemia: * K+ repleted today * Continue to monitor K+ and Mg and replete as needed. Depression: * Continue bupropion 150 mg daily CAD/hypertension: * Hold carvedilol 25 mg, 1.5 tab by mouth twice a day * Hold Epleronone * Hold Entresto Diabetes: * Hold metformin * Regular insulin sliding scale * Diabetic diet * FS * Check acetone Neuropathic pain/Back pain: * Hold Lyrica * he takes 7.5 of percocet 4x/day. * Sherry and tylenol PRN - currently controlling pain Morbid obesity s/p recent gastric sleeve * Will notify Dr. Davies's office * Patient currently on stage 2 bariatric diet Bariatric diet FC Heparin SQ Problem List: 1. Hypertension 2. Acute kidney injury 3. Morbid obesity 4. S/P laparoscopic sleeve gastrectomy Pain Ratin Pain Location: back Pain Goal: Remain pain free Pain Plan: sherry tylenol Tomorrow's Labs & Rationales: Maldonado East MD 02/04/18 0831: Attending MD Review Statement Attending Statement Attending MD Statement: examined this patient, discuss w/resident/PA/FLATBED TRUCK DRIVER, agreed w/resident/PA/FLATBED TRUCK DRIVER, discussed with family, reviewed EMR data (avail), discussed with nursing, discussed with case mgmt, reviewed images, amended to note Attending Assessment/Plan: Maldonado Pelaez M.D. have examined this patient, reviewed available EMR data, personally reviewed images, discussed with resident/PA/FLATBED TRUCK DRIVER, discussed management plan with housestaff and nursing staff, discussed managment plan all of healthcare providers, discussed management plan with patient and/or family, agreed with resident/PA/FLATBED TRUCK DRIVER. The past history and parts of the chart have been autopopulated. Impression 58 year old man * ALCIDES - likely pre-renal/dehydration, recently restarted furosemide- recent gastric sleeve surgery 01/24 * resolved hypotension * cardiomyopathy EF 30-35% * DM * Extremely severe CHUY Plan -will obtain renal usg -repeat bmp this afternoon to assess fluid needs -cardiology consultation was requested, will follow recs -will alert bariatric surgereon Dr. Dominique of admission (was to have post op apt Monday) -will continue to encouarge and discuss future options of sleep apnea therapy, pt has not been able to get acclimated to equipment DVT prophylaxis at all times
--- NOTE | 2018-02-04 13:56 | Cons- Cardiology ---
General Information and HPI Consulting Request Date of Consult: 02/04/18 Requested By: Onel HANEY,Alfredo Mccullough Reason for Consult: Ventricular ectopy; history of cardiomyopathy Source of Information: patient, old records Exam Limitations: no limitations History of Present Illness: Mr. Cooley is a very nice 50-year-old male. He is followed by Drs. Weber, kIe, and Zeina for his cardiac management. His past medical history is remarkable for a dilated cardiomyopathy with an ejection fraction of 30-35% and associated HFrEF, the patient does not have an AICD. He is currently on entresto. The patient also has history of obesity and is status post laparoscopic gastric sleeve 1 month ago. The patient has been on liquid diet since that time. The patient was brought to the emergency room by his with a chief complaint of low blood pressure, fatigue, etc. His blood pressure was in the 60-70 systolic range. The patient monitors his blood pressure daily at home. The patient notes that he has been faithful to his cardiac meds but recently restarted on Lasix at home. Due to the low blood pressure, the patient and his came to the emergency room. In the emergency room, the patient's blood pressure improved after several liters of IV fluid. However, in the emergency room he was noted to have frequent ventricular ectopy with episodes of bigeminy and trigeminy which is reportedly a new finding for this patient. The patient denies any other cardiovascular symptoms. Allergies/Medications Allergies: Coded Allergies: NSAIDS (Non-Steroidal Anti-Inflamma (GASTRIC SLEEVE 02/03/18) Home Med List: Bupropion HCl (Bupropion HCl Sr) 150 MG TABLET.ER 1 TAB PO BID DEPRESSION ( Reported) Carvedilol 25 MG TABLET 1.5 TAB PO BID HEART/BP (Reported) Dapagliflozin Propanediol (Farxiga) 10 MG TABLET 1 TAB PO DAILY DM (Reported) Eplerenone 25 MG TABLET 1 TAB PO DAILY BP (Reported) Furosemide 40 MG TABLET 1 TAB PO BID DIURETIC (Reported) Lidocaine 5 % ADH..PATCH 1 PAT TOP DAILY PRN PAIN (Reported) Metformin HCl 500 MG TABLET 1 TAB PO BID DM (Reported) Oxycodone HCl/Acetaminophen (Percocet 7.5-325 MG Tablet) 7.5 MG-325 MG TABLET 1 TAB PO 4 TIMES/DAY PAIN (Reported) Pregabalin (Lyrica) 100 MG CAPSULE 1 CAP PO DAILY PAIN (Reported) OPEN CAPSULE AND TAKE WITH APPLESAUCE OR EQUIVALENT FOOD Sacubitril/Valsartan (Entresto 97 MG-103 MG Tablet) 97 MG-103 MG TABLET 1 TAB PO BID HEART (Reported) Current Medications: Current Medications Sig/Shelia Start time Last Medication Dose Route Stop Time Status Admin Acetaminophen 1,000 MG Q6P PRN 02/04 0030 AC 02/04 N/A 1 UNIT IV 02/05 0029 0646 Acetaminophen 650 MG Q6P PRN 02/03 1845 DC PO Acetaminophen 1,000 MG ONCE ONE 02/03 1615 DC 02/03 N/A 1 UNIT IV 02/03 1629 1611 Acetaminophen 0 .STK-MED ONE 02/03 1612 DC IV Bupropion HCl 150 MG BID 02/03 2100 AC 02/04 PO 0923 Heparin Sodium 5,000 UNIT Q8 02/03 2200 AC 02/04 (Porcine) SC 0647 Hydrocodone Bitart/ 1 TAB Q6P PRN 02/03 1845 DC Acetaminophen PO Insulin Aspart 0 TIDAC 02/04 0800 AC SC Magnesium Sulfate 1 GM Q2H 02/03 1630 DC 02/03 Dextrose/Water 100 ML IV 02/03 2029 1811 Magnesium Sulfate 2 GM ONCE ONE 02/03 1615 CAN IV 02/03 1630 Morphine Sulfate 2 MG Q4P PRN 02/03 1845 DC IV Oxycodone HCl 7.5 MG Q6P PRN 02/04 0430 AC 02/04 PO 1034 Sodium Chloride 1,000 ML BOLUS ONE 02/03 1615 DC 02/03 IV 02/03 1714 1445 Sodium Chloride 1,000 ML ONCE ONE 02/03 1615 DC / IV / 0014 1611 Past History Travel History Traveled to [place] past 21 day No Medical History Blood Transfusion Hx: No Neurological: NONE EENT: NONE Cardiovascular: CHF, "FAST HEART RATE, LOW BLOOD PRESSURE" Respiratory: NONE Gastrointestinal: GASTRIC SLEEVE Hepatic: NONE Renal: NONE Musculoskeletal: spinal stenosis, CHRONIC BACK PAIN Psychiatric: bipolar disease Endocrine: diabetes Blood Disorders: NONE Cancer(s): NONE LEAD PORTFOLIO MANAGER/Reproductive: NONE Surgical History Surgical History: BACK SURGERY Family History Relations & Conditions If Any: MOTHER FH: diabetes mellitus SISTER FH: diabetes mellitus Psychosocial History Who Do You Live With? spouse Services at Home: None Smoking Status: Light Tobacco Smoker ETOH Use: denies use Illicit Drug Use: denies illicit drug use Functional Ability ADLs Independent: dressing, eating, toileting, bathing. Ambulation: independent IADLs Independent: shopping, housework, finances, food prep, telephone, transportation , medication admin. Exam & Diagnostic Data Vital Signs and I&O Vital Signs Date Time Temp Pulse Resp B/P B/P Pulse O2 O2 Flow FiO2 Mean Ox Delivery Rate 02/04 0930 84 120/90 /03 0926 82 120/90 /03 0800 Room Air 06/03 0635 97.8 79 20 100/70 91 Room Air 06/03 0354 98.2 76 18 102/68 96 Room Air 06/03 0300 98.6 80 20 120/80 94 Room Air 06/02 2309 98.2 82 16 102/68 96 Room Air 06/02 2308 96 Room Air 06/02 2300 98.2 65 18 102/68 96 Room Air 06/02 2232 98.6 78 20 129/71 97 Room Air 06/02 2059 97.6 78 20 127/60 97 Room Air 06/02 1905 78 18 114/60 96 Room Air 06/02 1744 98.8 78 20 103/57 96 Room Air 06/02 1600 75 15 106/58 98 Room Air Room Air 06/02 1507 78 18 84/39 99 Room Air 06/02 1505 98 Room Air 06/02 1456 81 18 92/57 99 Room Air 06/02 1453 81 18 90/52 98 Room Air 06/02 1450 76 58/40 06/02 1414 96.0 82 15 78/52 98 Room Air Room Air Intake & Output / 1600 06/ 0800 /03 0000 /02 1600 06/ 0800 06/02 0000 Intake Total 220 Output Total 1430 Balance 220 -1430 Intake, Oral 220 Output, Urine 1430 Patient 301 lb 301 lb 288 lb Weight Weight Bed scale Bed scale Reported by Patient Measurement Method Physical Exam: General Appearance Alert, Oriented X3, Cooperative, No Acute Distress Skin normal HEENT Atraumatic, PERRLA, EOMI Neck Supple, JVP normal, carotid upstroke normal bilaterally with no bruits Cardiovascular Regular Rate, Normal S1, Normal S2, 1/6 systolic murmur left sternal border Lungs Normal Air Movement Abdomen Soft, No Tenderness, 2 well healing incisions on mid and r. abd. ecchymosis on RLQ. Neurological Normal/nonfocal Extremities No Edema, Normal Pulses Labs/Gwyn Results: Laboratory Tests 02/04 02/03 02/03 1310 2111 1501 Chemistry Sodium (137 - 145 mmol/L) Pending 139 Potassium (3.5 - 5.1 mmol/L) Pending 3.6 Chloride (98 - 107 mmol/L) Pending 98 Carbon Dioxide (22 - 30 mmol/L) Pending 24 Anion Gap (5 - 16) Pending 17 H BUN (9 - 20 mg/dL) Pending 25 H Creatinine (0.7 - 1.2 mg/dL) Pending 1.9 H Estimated GFR (>60 ml/min) 37 L BUN/Creatinine Ratio (7 - 25 %) Pending 13.2 Glucose (65 - 99 mg/dL) 140 H Serum Osmolality (285 - 295 MOSM/KG) 295 Lactic Acid (0.7 - 2.1 mmol/L) 1.1 Calcium (8.4 - 10.2 mg/dL) 9.7 Magnesium (1.6 - 2.3 mg/dL) 1.2 L Total Bilirubin (0.2 - 1.3 mg/dL) 1.1 AST (17 - 59 U/L) 32 ALT (21 - 72 U/L) 49 Alkaline Phosphatase (< 127 U/L) 43 Troponin I (<0.11 ng/ml) < 0.01 [id number] Pept (<125 pg/mL) 195 H Total Protein (6.3 - 8.2 g/dL) 7.2 Albumin (3.5 - 5.0 g/dL) 4.2 Globulin (1.9 - 4.2 gm/dL) 3.0 Albumin/Globulin Ratio (1.1 - 2.2 %) 1.4 Amylase (30 - 110 U/L) 44 Lipase (23 - 300 U/L) 61 Hematology CBC w Diff NO MAN DIFF REQ WBC (4.8 - 10.8 /CUMM) 9.2 RBC (4.70 - 6.10 /CUMM) 4.89 Hgb (14.0 - 18.0 G/DL) 15.9 Hct (42 - 52 %) 46.3 MCV (80.0 - 94.0 FL) 94.8 H MCH (27.0 - 31.0 PG) 32.6 H MCHC (33.0 - 37.0 G/DL) 34.4 RDW (11.5 - 14.5 %) 14.3 Plt Count (130 - 400 /CUMM) 258 MPV (7.4 - 10.4 FL) 8.4 Gran % (42.2 - 75.2 %) 61.2 Lymphocytes % (20.5 - 51.1 %) 27.1 Monocytes % (1.7 - 9.3 %) 9.2 Eosinophils % (0 - 5 %) 2.0 Basophils % (0.0 - 2.0 %) 0.5 Absolute Granulocytes (1.4 - 6.5 /CUMM) 5.6 Absolute Lymphocytes (1.2 - 3.4 /CUMM) 2.5 Absolute Monocytes (0.10 - 0.60 /CUMM) 0.8 H Absolute Eosinophils (0.0 - 0.7 /CUMM) 0.2 Absolute Basophils (0.0 - 0.2 /CUMM) 0 Toxicology Acetone Level (NEGATIVE) NEGATIVE Urines Urine Color Cancelled Urine Clarity Cancelled Urine pH Cancelled Ur Specific [place] Cancelled Urine Protein Cancelled Urine Ketones Cancelled Urine Nitrite Cancelled Urine Bilirubin Cancelled Urine Urobilinogen Cancelled Ur Leukocyte Esterase Cancelled Ur Microscopic Cancelled Urine Hemoglobin Cancelled Urine Glucose Cancelled Diagnostic Data CXR Results FINDINGS: The lower portion of the left lung is excluded from view. The imaged portions of the lungs are aerated. No obvious pleural effusions are seen, though assessment is again limited due to incomplete visualization of the costophrenic sulci. The cardiac silhouette remains prominent. Mediastinal contours are normal. No acute osseous abnormality is seen. IMPRESSION: Slightly limited study with incomplete visualization of the costophrenic sulci and lower portion of the left lung base. Otherwise, no acute process. Assessment/Plan Assessment/Plan Assessment 1. Ventricular ectopy with episodes of bigeminy and trigeminy-likely related to dehydration and metabolic abnormalities in the face of concomitant cardiomyopathy 2. Symptomatic hypotension likely related to intravascular volume depletion, medications, etc. 3. Acute renal insufficiency-likely related to volume depletion 4. Anion gap metabolic acidosis 5. Diabetes 6. Status post laparoscopic gastric sleeve 1 week ago 7. Hypomagnesemia Accommodations: -Monitor the patient on telemetry for another 24 hours -Continue to hold any blood pressure lowering medications until the patient's pressure is more stable. Consider reinstituting carvedilol and entresto tomorrow at lower doses with subsequent titration as per blood pressure -Follow-up echocardiogram -Aggressively replete magnesium and supplement potassium as well -Avoid diuretics for now -Follow up with Ike Paredes, and Trip tomorrow Consult Acknowledgment - Thank you for your consult request.
--- NOTE | 2018-02-04 14:28 | ULTRASOUND REPORT ---
EXAMINATION: US RETROPERITONEAL COMPLETE (RENAL) CLINICAL INFORMATION: Rule out obstruction or structural abnormality. ALCIDES. COMPARISON: None TECHNIQUE: Real-time imaging of the kidneys and bladder. FINDINGS: RIGHT KIDNEY: 11.4 x 5 x 5.4 cm (SAG x AP x TRV). The kidney is normal in size, contour, and echogenicity. Renal cortical thickness is normal. No calculi or focal parenchymal lesions. No hydronephrosis. LEFT KIDNEY: 12.5 x 5.3 x 5.2 cm (SAG x AP x TRV). The kidney is normal in size, contour, and echogenicity. Renal cortical thickness is normal. No calculi or focal parenchymal lesions. No hydronephrosis. BLADDER: Partially distended. Bilateral ureteral jets are not demonstrated. Prevoid bladder volume is 318 mL. Postvoid bladder volume is 170 mL. IMPRESSION: Normal sonographic appearance of the kidneys, without hydronephrosis or discrete focal lesion. Moderate post void residual.
[2018-02-05 06:40] VITALS: BP 100/60
--- NOTE | 2018-02-05 08:02 | PN- Housestaff ---
See Addendum Subjective Follow-up For: Hypotension ALCIDES - resolved Ventricular Ectopy Morbid obesity s/p gastric sleeve Chronic back pain Tele-Events Since Last Visit: NSR, HR: 60s to 70s, 6beat run of vtach overnight Subjective: Patient was seen and examined today. Patient reports that he is feeling well today and would like to go home. Patient denies any lightheadedness, dizziness, chest pain, palpitations, shortness of breath. No acute events overnight. Review of Systems Constitutional: Reports: see HPI. Objective Last 24 Hrs of Vital Signs/I&O Vital Signs Date Time Temp Pulse Resp B/P B/P Pulse O2 O2 Flow FiO2 Mean Ox Delivery Rate 02/05 1451 98.7 82 20 112/70 95 Room Air / 0640 97.9 77 20 100/60 96 Room Air / 2220 97.4 76 18 118/78 93 Room Air Intake & Output / 1600 /04 0800 06/04 0000 Intake Total 600 300 720 Output Total 700 Balance 600 300 20 Intake, Oral 600 300 720 Output, Urine 700 Patient 283 lb Weight Weight Bed scale Measurement Method Physical Exam General Appearance: Alert, Oriented X3, Cooperative, No Acute Distress Other Physical Findings: Skin Temp/Moisture Exam: Warm/Dry Cardiovascular: Regular Rate, Normal S1, Normal S2 Lungs: Clear to Auscultation, Normal Air Movement Abdomen: Normal Bowel Sounds, Soft, No Tenderness Neurological: Normal Speech, Strength at 5/5 X4 Ext, Normal Tone, Sensation Intact, Cranial Nerves 3-12 NL Extremities: No Clubbing, No Cyanosis, No Edema, Normal Pulses, No Tenderness/ Swelling Vascular: Normal Pulses, Pulses Symmetrical Assessment/Plan Assessment: 50-year-old male with past medical history of HFrEF with EF 30-35, dilated cardiomyopathy no ICD on Entresto, morbid obesity status post lap gastric sleeve in January 2018 who comes in for CC of malaise and hypotension. Anthony BP measured in ED was 58/40 and Cr was up to 1.9. I suspect that his hypotension precipitated a pre-renal state which was exacerbated by metformin and ARB. The etiology of his hypotension is likely due to a combination of recent surgery and decreased PO intake, the re-introduction of Lasix and increased urine output. PLAN: Hypotension: Resolved with 2 bags IVF. Given low EF will stop at this point and encourage PO intake. If his BP continues to be low will give add'l fluid * Q4 BP * Continue to hold antihypertensives per cardiology Ventricular ectopy: EKG shows trigemini and pt had frequent PVC on monitor. He states he doesn't have hx of abnml heart rhythm. He follows with Dr. Mak Ramires for HF. Mag was 1.3 today. * Monitor on Tele * Repleted mag * Monitor electrolytes * Cardiology consulted. Appreciate recommendations. Will continue to hold antihypertensives per cardiology. ALCIDES: Resolved. Likely pre-renal 2/2 to dehydration in setting of recent gastric sleeve and patient restarting lasix himself over past few days. Renal Ultrasound negative. Creatinine today improved to 1.0 * Continue to monitor creatinine * Avoid nephrotoxic agents * Strict I/O Anion gap: Gap is 17. DDX likely renal failure. Acetone negative. Resolved with fluid hydration. Hypokalemia: * K+ repleted today * Continue to monitor K+ and Mg and replete as needed. Depression: * Continue bupropion 150 mg daily CAD/hypertension: * Hold carvedilol 25 mg, 1.5 tab by mouth twice a day * Hold Epleronone * Hold Entresto Diabetes: * Hold metformin * Regular insulin sliding scale * Diabetic diet * FS * Check acetone Neuropathic pain/Back pain: * Hold Lyrica * Restarted percocet today Morbid obesity s/p recent gastric sleeve * Spoke to Dr. Dominique today. Patient can upgrade his diet to puree on Monday , February 07. Patient is to call the office to make an appointment for this week. * Patient currently on stage 2 bariatric diet Vitamin D deficiency * Vitamin D level: 15 * Started on 50,000 IU per week for total of 8 weeks. Acid Reflux * Patient reports TUMs is not helping * Will start on PPI Bariatric diet FC Heparin SQ Problem List: 1. Acute kidney injury 2. Morbid obesity 3. S/P laparoscopic sleeve gastrectomy Pain Ratin Pain Location: back Pain Goal: Pain 7 or less Pain Plan: percocet q6h PRN Tomorrow's Labs & Rationales: bep, mg
--- NOTE | 2018-02-05 10:04 | PN- Cardiology ---
Subjective Subjective: Jeramie Cooley is a 58-year-old male with no previous cardiac history. He did have one brief admission in 2005 for chest pain. He had an echocardiogram at that time which is not available in the system. He did have a nuclear stress test which was negative and showed a normal ejection fraction. He never followed up with Cardiology. Jeramie had been noticing some increasing shortness of breath for one month prior to a March 2015 hospitalization. He went to [facility] and got an inhaler about one month prior. Over a couple of days prior to his [facility] admission he noted increasing shortness of breath with exertion. On the evening before admission he became markedly orthopneic and had PND and and came to the emergency room on 03/23/2015 for increasing shortness of breath. He had some vague heaviness in his upper chest but no chest pain on exertion. He did not notice any edema but it was pointed out to him in the emergency room that he had some. He is diabetic on oral medications. He is not hypertensive and does not smoke cigarettes. He does not drink significant amounts of alcohol. He was in the hospital for 3 or 4 days. He diuresed well. His echocardiogram showed dilated cardiomyopathy with ejection fraction of 20% to 30% with no obvious regional wall motion abnormalities. He had left atrial dilatation and moderately elevated pulmonary artery pressure. He was placed on appropriate medications including RISSA inhibitors, beta blockers and diuretics, and was asymptomatic on discharge. I saw him back in the office on 04/09/2015. At that time, he was asymptomatic but still somewhat tachycardic. I increased his Coreg to 12.5 mg b.i.d. and continued him on low-dose lisinopril and Lasix. I ordered a followup echocardiogram and Holter to be done in 2 weeks' time; however, he did not get it done actually until August 2015, His repeat echocardiogram showed an ejection fraction of about 50%. His Holter monitor showed that he had mild to moderate ventricular ectopy with 12 couplets and 1424 total PVCs and no significant supraventricular arrhythmias. His average heart rate was 105. His last echo in December 2016 showed ejection fraction of 30-35%. Subsequently I referred him to Dr. Mak Ramires for consideration for defibrillator. So far defibrillator has been deferred. Jeramie subsequently had some issues with finances and medications and insurance , and had not been seen for 1 year. He was off his medications for about 4 weeks. He was then seen again in April 2016. At that time he seemed stable so I ordered an echocardiogram on him to see if it was similar to his echo in August 2015. That echo had shown some improvement in his ejection fraction from his original echo to about 50%. He did have his echocardiogram done in July 2016 and this now showed his ejection fraction is back to 25% to 30% with a cardiomyopathic picture. He did have a followup echocardiogram done 12/20/2016 which showed that it was a technically difficult study even though we used Definity contrast. He had an ejection fraction of 30% to 35% estimated with some diastolic dysfunction and some mild thickening of the mitral valve leaflets, and no mitral regurgitation. We were unable to evaluate his pulmonary artery pressure. He recently underwent bariatric surgery and presented yesterday with hypotension probably from overdiuresis and poor p.o. intake. I actually last saw him about 1 year ago. Subsequently he is being followed by Dr. Ramires but also Dr. Jeramie Pastrana at [facility]. I do not know if he has had a more recent echocardiogram at [facility]. Objective Vital Signs and I&Os Vital Signs Date Time Temp Pulse Resp B/P B/P Pulse O2 O2 Flow FiO2 Mean Ox Delivery Rate 02/05 0640 97.9 77 20 100/60 96 Room Air 02/04 2220 97.4 76 18 118/78 93 Room Air 02/04 1444 98.1 89 20 110/70 95 Intake & Output / 1600 02/05 0800 02/05 0000 02/04 1600 02/04 0800 02/04 0000 Intake Total 300 720 730 220 Output Total 700 1430 Balance 300 20 730 220 -1430 Intake, IV 10 Intake, Oral 300 720 720 220 Output, Urine 700 1430 Patient 283 lb 301 lb 301 lb Weight Weight Bed scale Bed scale Bed scale Measurement Method Physical Exam: He is in no distress HEENT exam normal Chest is clear Heart regular rhythm no murmurs Extremities no edema Current Medications: Current Medications Sig/Shelia Start time Last Medication Dose Route Stop Time Status Admin Acetaminophen 1,000 MG Q6P PRN 02/04 0030 DC 02/04 N/A 1 UNIT IV 02/05 0029 1909 Bupropion HCl 150 MG BID 02/03 2100 AC 02/05 PO 0948 Calcium 600 MG 4 TIMES/DAY PRN 02/04 2345 AC PO Calcium Carbonate 500 MG .STK-MED ONE 02/04 2338 DC PO 02/04 2339 Heparin Sodium 5,000 UNIT Q8 02/03 2200 AC 02/05 (Porcine) SC 0535 Insulin Aspart 0 TIDAC 02/04 0800 AC SC Magnesium Oxide 400 MG ONE ONE 02/05 0930 DC 02/05 PO 02/05 0931 0949 Magnesium Oxide 400 MG ONE ONE 02/04 1815 DC 02/04 PO 02/04 181 190 Oxycodone HCl 7.5 MG Q6P PRN 02/04 0430 AC 02/05 PO 1136 Potassium Chloride 20 MEQ ONCE ONE 02/05 930 DC 02/05 PO 02/05 0931 0949 Potassium Chloride 40 MEQ Q1 02/04 1800 DC 02/04 PO 02/04 190 190 Results Last 48 Hrs of Labs/Mics: Laboratory Tests 02/05/18 0623: Anion Gap 13, Estimated GFR > 60, BUN/Creatinine Ratio 15.0, Magnesium 1.3 L 02/04/18 1310: Anion Gap 14, Estimated GFR > 60, BUN/Creatinine Ratio 16.0, Magnesium 1.4 L 02/03/18 2111: Urine Color Cancelled, Urine Clarity Cancelled, Urine pH Cancelled, Ur Specific [place] Cancelled, Urine Protein Cancelled, Urine Ketones Cancelled, Urine Nitrite Cancelled, Urine Bilirubin Cancelled, Urine Urobilinogen Cancelled, Ur Leukocyte Esterase Cancelled, Ur Microscopic Cancelled, Urine Hemoglobin Cancelled, Urine Glucose Cancelled 02/03/18 1501: Anion Gap 17 H, Estimated GFR 37 L, BUN/Creatinine Ratio 13.2, Glucose 140 H, Serum Osmolality 295, Lactic Acid 1.1, Calcium 9.7, Magnesium 1.2 L, Total Bilirubin 1.1, AST 32, ALT 49, Alkaline Phosphatase 43, Troponin I < 0.01, Pro-B -Natriuretic Pept 195 H, Total Protein 7.2, Albumin 4.2, Globulin 3.0, Albumin/ Globulin Ratio 1.4, Amylase 44, Lipase 61, CBC w Diff NO MAN DIFF REQ, RBC 4.89, MCV 94.8 H, MCH 32.6 H, MCHC 34.4, RDW 14.3, MPV 8.4, Gran % 61.2, Lymphocytes % 27.1, Monocytes % 9.2, Eosinophils % 2.0, Basophils % 0.5, Absolute Granulocytes 5.6, Absolute Lymphocytes 2.5, Absolute Monocytes 0.8 H, Absolute Eosinophils 0.2, Absolute Basophils 0, Acetone Level NEGATIVE Recent Imaging Studies: PATIENT: JERAMIE COOLEY III PRESENT AGE: 58 PATIENT ACCOUNT NO: [id number] : 60 LOCATION: [facility] ORDERING PHYSICIAN: Meliza BOYCE SERVICE DATE: 02/03/18 EXAM TYPE: RAD - XRY-PORTABLE CHEST XRAY EXAMINATION: XR PORTABLE CHEST CLINICAL INFORMATION: Dehydration. Fatigue and dizziness. COMPARISON: Chest x-ray from 01/16/2018. TECHNIQUE: Portable frontal view of the chest was obtained. FINDINGS: The lower portion of the left lung is excluded from view. The imaged portions of the lungs are aerated. No obvious pleural effusions are seen, though assessment is again limited due to incomplete visualization of the costophrenic sulci. The cardiac silhouette remains prominent. Mediastinal contours are normal. No acute osseous abnormality is seen. IMPRESSION: Slightly limited study with incomplete visualization of the costophrenic sulci and lower portion of the left lung base. Otherwise, no acute process. DICTATED BY: Wade Garcia MD DATE/TIME DICTATED:02/03/181622 OVEN TECHNICIAN:INDER DATE/TIME TRANSCRIBED:02/03/181622 CONFIDENTIAL, DO NOT COPY WITHOUT APPROPRIATE AUTHORIZATION. <Electronically signed in Other Vendor System> SIGNED BY: Wade Garcia MD 7 Assessment/Plan Assessment/Plan Jeramie is doing better after some fluid resuscitation and discontinuation of his Entresto. His BUN and creatinine have come down to normal. His blood pressure is still in the low normal range. I recommend an echocardiogram to see where his ejection fraction is at this time. I recommend continuing to hold his Entresto as his blood pressure is still borderline. I would keep him on telemetry overnight. If he does well he may be able to be discharged by tomorrow depending on his vital signs and echo results. Continue telemetry? Yes
[2018-02-05 14:51] VITALS: BP 112/70
[2018-02-05] MEDS ORDERED: VITAMIN D250000 UNIT PO (18:48)
--- NOTE | 2018-02-05 18:52 | Patient Discharge Instructions ---
Discharge Instructions General Discharge Information You were seen/treated for: Hypotension (low bp) Acute Kidney Injury Special Instructions: 1. Please call Dr. Dominique to make an appointment this week or next week 2. Please follow up with your party plan sales consultant within 1 week 3. Please follow up with your pcp within 1 week of discharge 4. Please note the medication changes that have been made 5. You have an upcoming pain management appointment on 02/07 2018 at 10:45 AM Diet Continue normal diet: No Recommended Diet: Bariatric, You may start a puree diet on 02/07 per your surgeon. Activity Full Activity/No Limits: No Activity Self Limited: Yes Acute Coronary Syndrome Inclusion Criteria At DC or during hospital stay patient has or had the following: ACS DIAGNOSIS No Discharge Core Measures Meds if any: Prescribed or Continued at Discharge Meds if any: NOT Prescribed or Continued at Discharge Congestive Heart Failure Inclusion Criteria At DC or during hospital stay patient has or had the following: CHF DIAGNOSIS No Discharge Core Measures Meds if any: Prescribed or Continued at Discharge Meds if any: NOT Prescribed or Continued at Discharge Cerebrovascular accident Inclusion Criteria At DC or during hospital stay patient has or had the following: CVA/TIA Diagnosis No Discharge Core Measures Meds if any: Prescribed or Continued at Discharge Meds if any: NOT Prescribed or Continued at Discharge Venous thromboembolism Inclusion Criteria VTE Diagnosis No VTE Type NONE VTE Confirmed by (Test) NONE Discharge Core Measures - Per Current guidelines, there needs to be overlap - treatment for the first 5 days of Warfarin therapy. - If discharged on Warfarin prior to 5 days of - overlap therapy, the patient will need to be - assessed for post discharge needs including - *Post discharge parental anticoagulation - *Warfarin and/or parental anticoagulation education - *Follow up date to check INR post discharge At least 5 days overlap therapy as Inpatient No Meds if any: Prescribed or Continued at Discharge Note: Overlap Therapy is Warfarin and Anticoagulant Meds if any: NOT Prescribed or Continued at Discharge
[2018-02-05 22:21] VITALS: BP 120/76
[2018-02-06 06:48] VITALS: BP 136/84
--- NOTE | 2018-02-06 08:08 | PN- Housestaff ---
See Addendum Subjective Follow-up For: Hypotension ALCIDES - resolved Ventricular Ectopy Morbid obesity s/p gastric sleeve Chronic back pain Tele-Events Since Last Visit: NSR 70-80s No overnight acute events Subjective: Patient seen and examined. Resting comfortably. Does not offer any complaint. Wants to be discharged home. Denies any lightheadedness dizziness, chest pain, shortness of breath. Patient wants to be discharged home today. Requesting Percocet on discharge. His pain management appointment is coming up on Monday. Review of Systems Constitutional: Reports: see HPI. Objective Last 24 Hrs of Vital Signs/I&O Vital Signs Date Time Temp Pulse Resp B/P B/P Pulse O2 O2 Flow FiO2 Mean Ox Delivery Rate 02/06 0648 97.5 88 20 136/84 94 Room Air / 2221 97.8 96 20 120/76 94 Room Air / 1451 98.7 82 20 112/70 95 Room Air Intake & Output 02/06 1600 02/06 0800 02/06 0000 Intake Total 680 660 Output Total Balance 680 660 Intake, Oral 680 660 Patient 279 lb Weight Weight Bed scale Measurement Method Physical Exam General Appearance: Alert, Oriented X3 Cardiovascular: Normal S1, Normal S2 Lungs: Clear to Auscultation Abdomen: Normal Bowel Sounds, Soft, No Tenderness Neurological: Normal Speech Extremities: No Edema Current Medications: Current Medications Sig/Shelia Start time Last Medication Dose Route Stop Time Status Admin Bupropion HCl 150 MG BID 02/03 2100 AC 02/06 PO 0845 Calcium 600 MG 4 TIMES/DAY PRN 02/04 2345 PO Ergocalciferol 50,000 IU ONCE A WEEK 02/05 1615 AC 02/05 PO 03/26 1001 1854 Heparin Sodium 5,000 UNIT Q8 02/03 2200 AC 02/06 (Porcine) SC 0537 Insulin Aspart 0 TIDAC 02/04 0800 SC Magnesium Oxide 400 MG BID 02/06 0815 AC 02/06 PO 0845 Magnesium Oxide 400 MG ONE ONE 02/05 1400 DC 02/05 PO 02/05 1401 1403 Magnesium Oxide 400 MG ONE ONE 02/05 0930 DC 02/05 PO 02/05 0931 0949 Magnesium Sulfate 1 GM ONCE ONE 02/06 0815 02/06 Dextrose/Water 100 ML IV 02/06 1214 0850 Omeprazole 20 MG DAILY AC 02/05 1615 AC 02/06 PO 0537 Oxycodone HCl 7.5 MG Q6P PRN 02/04 0430 DC 02/05 PO 1136 Oxycodone/ 1.5 TAB Q6-PRN PRN 02/05 1800 AC 02/06 Acetaminophen PO 0534 Oxycodone/ 1 TAB Q6P PRN 02/05 1415 DC Acetaminophen PO Potassium Chloride 20 MEQ ONCE ONE 02/05 0930 DC 02/05 PO 02/05 0931 0949 Last 24 Hrs of Lab/Gwyn Results Last 24 Hrs of Labs/Mics: Laboratory Tests 02/06/18 0615: Anion Gap 15, Estimated GFR > 60, BUN/Creatinine Ratio 15.6, Magnesium 1.2 L Assessment/Plan Assessment: 50-year-old male with past medical history of HFrEF with EF 30-35, dilated cardiomyopathy no ICD on Entresto, morbid obesity status post lap gastric sleeve in January 2018 who comes in for CC of malaise and hypotension. Anthony BP measured in ED was 58/40 and Cr was up to 1.9. I suspect that his hypotension precipitated a pre-renal state which was exacerbated by metformin and ARB. The etiology of his hypotension is likely due to a combination of recent surgery and decreased PO intake, the re-introduction of Lasix and increased urine output. His hypotension is resolved. As per cardiology recommendations. medications including carvediol, epleronone, entrsto remain on hold. I believe the patient 's carvedilol can be continued at this point. We will get in touch with patient 's gastroenterology nurse practitioner about his discharge regimen. His echocardiogram has been done but has not been read yet. On Presentation patient had an ALCIDES secondary to dehydration which has resolved. Anion gap has closed. Hypokalemia has resolved. Patient continues to be a Hypomagnesiumic, we are actively repleteing right now. will add magnesium supplementations on discharge For depression we are continuing patient's home dose of wellbutrin. He has history of diabetes mellitus on oral anti-glycemic agents remain on hold and he is being maintained on insulin sliding scale and his blood sugars are running in adequate range. He can be discharged on his home regimen of metformin. Patient has chronic back pain for which he uses Percocet. He has an appointment coming up on pain management on Monday. Requested to be discharged on on and off during the few days of Percocet. We will check CTMP before prescribing Patient has been started on vitamin D supplementation a vitamin D level of 15 Patient has history of morbid obesity status post recent gastric sleeve. spoke to Dr. Davies yesterday, patient can upgrade his diet to puree on Monday, February 07. Patient is to call the office to make an appointment for this week. FC/Bariatric diet/Heparin SQ Problem List: 1. Hypertension Pain Ratin Pain Location: back Pain Goal: Pain 4 or less Pain Plan: prn Tomorrow's Labs & Rationales: none anticipate dc Heparin SQ Morbid obesity s/p recent gastric sleeve * Spoke to Dr. Dominique today. Patient can upgrade his diet to puree on Monday , February 07. Patient is to call the office to make an appointment for this week. * Patient currently on stage 2 bariatric diet Vitamin D deficiency * Vitamin D level: 15 * Started on 50,000 IU per week for total of 8 weeks. Acid Reflux * Patient reports TUMs is not helping * Will start on PPI Bariatric diet FC Heparin SQ
[2018-02-06] MEDS ORDERED: MAGNESIUM OXID400 M1 PO ×4 (10:08→12:50)
[2018-02-06] MEDS ORDERED: PERCOCET 5-3251 EACH PO (10:14)
--- NOTE | 2018-02-06 10:24 | ECHOCARDIOGRAM REPORT ---
NALLELY MAYNARD Age: 58 : 1960 Gender: M Exam Date: 02/05/2018 16:06 Exam Location: [address] [facility] Ht (in): 76 Wt (lb): 283 BSA: 2.66 BP: 100 / 69 Ordering Physician: Nathan Weber MD Referring Physician: Tia/Ike Technologist: Ophelia Wheat KENNEDY Room Number: [id number] Indications: CARDIOMYOPATHY Rhythm: Sinus Technical Quality: Technically difficult study FINDINGS Left Ventricle Left ventricular cavity size at the upper limits of normal. Mild concentric left ventricular hypertrophy. Left ventricular contractility is moderately reduced. Visually estimated ejection fraction is 35-40%. No obvious regional wall motion abnormalities. Abnormal relaxation filling pattern of the left ventricle for age (stage 1 diastolic dysfunction). Right Ventricle The right ventricle is normal in size and function. Right Atrium The right atrium is normal in size. Left Atrium Left atrial size at the upper limits of normal. Mitral Valve Mild thickening/calcification of the mitral valve leaflets. Mild mitral annular calcification. No mitral regurgitation. Aortic Valve Focal thickening of the aortic valve cusps. No aortic stenosis. No aortic regurgitation. Tricuspid Valve Trace tricuspid regurgitation. Right ventricular systolic pressure estimated to be within the normal range at 20-25 mmHg. Pulmonic Valve Pulmonic valve not well visualized, grossly normal. Trace pulmonic regurgitation. Pericardium Normal pericardium without effusion. No pleural effusion. Great Vessels Normal aortic root dimension. The aortic arch and great vessels are not well seen. CONCLUSIONS Left ventricular cavity size at the upper limits of normal. Mild concentric left ventricular hypertrophy. Visually estimated ejection fraction is 35-40%. Abnormal relaxation filling pattern of the left ventricle for age (stage 1 diastolic dysfunction). Left atrial size at the upper limits of normal. Mild thickening/calcification of the mitral valve leaflets. Mild mitral annular calcification. No mitral regurgitation. Focal thickening of the aortic valve cusps. No aortic stenosis. Right ventricular systolic pressure estimated to be within the normal range at 20-25 mmHg. The aortic arch and great vessels are not well seen. Nathan Weber M.D. (Electronically Signed) Final Date: 06 February 2018 10:23 MEASUREMENTS (Male / Female) Normal Values 2D ECHO LV Diastolic Diameter PLAX 5.4 cm 4.2 - 5.9 / 3.9 - 5.3 cm LV Systolic Diameter PLAX 4.1 cm 2.1 - 4.0 cm LV Fractional Shortening PLAX 24.1 % 25 - 46 % LV Ejection Fraction 2D Teich 47.5 % IVS Diastolic Thickness 1.2 cm LVPW Diastolic Thickness 1.2 cm LV Relative Wall Thickness 0.4 RV Internal Dim ED PLAX 2.1 cm 1.9 - 3.8 cm LVOT Diameter 2.3 cm Aortic Root Diameter 3.3 cm LA Systolic Diameter LX 3.7 cm 3.0 - 4.0 / 2.7 - 3.8 cm LA Volume 35.0 cm 18 - 58 / 22 - 52 cm Ascending Aorta Diameter 3.4 cm DOPPLER AV Peak Velocity 130.0 cm/s AV Peak Gradient 6.8 mmHg AV Mean Velocity 92.6 cm/s AV Mean Gradient 4.0 mmHg AV Velocity Time Integral 24.6 cm LVOT Peak Velocity 73.7 cm/s LVOT Peak Gradient 2.2 mmHg LVOT Mean Velocity 49.6 cm/s LVOT Mean Gradient 1.0 mmHg LVOT Velocity Time Integral 13.8 cm LVOT Stroke Volume 57.3 cm AV Area Cont Eq vti 2.3 cm AV Area Cont Eq pk 2.4 cm MV Peak Velocity 105.0 cm/s MV Peak Gradient 4.4 mmHg MV Mean Velocity 55.7 cm/s MV Mean Gradient 2.0 mmHg Mitral E Point Velocity 43.1 cm/s Mitral A Point Velocity 94.8 cm/s Mitral E to A Ratio 0.5 MV PHT Velocity 54.3 cm/s MV Deceleration [facility] [facility] 224.0 cm/s MV Pressure Half Time 72.7 ms MV Area PHT 3.0 cm MV Deceleration Time 428.0 ms TR Peak Velocity 200.0 cm/s TR Peak Gradient 16.0 mmHg Right Atrial Pressure 5.0 mmHg Pulmonary Artery Systolic Pressu 21.0 mmHg Right Ventricular Systolic Press 21.0 mmHg PV Peak Velocity 85.8 cm/s PV Peak Gradient 2.9 mmHg PV Mean Velocity 59.9 cm/s PV Mean Gradient 2.0 mmHg PV Velocity Time Integral 16.8 cm LV E' Lateral Velocity 3.8 cm/s Mitral E to LV E' Lateral Ratio 11.4 LV E' Septal Velocity 10.2 cm/s Mitral E to LV E' Septal Ratio 4.2
[2018-02-06] MEDS ORDERED: CARVEDILOL25 M1 PO ×3 (10:47→12:50)
[2018-02-06] MEDS ORDERED: VITAMIN D250000 UNIT PO ×2 (10:56→12:50)
--- NOTE | 2018-02-06 11:04 | PN- Cardiology ---
Subjective Subjective: Jeramie is feeling very well at this time. He denies any chest pain or shortness of breath. He has no edema. His labs are all good except for a low magnesium which is being replaced. He is eager to be discharged. Objective Vital Signs and I&Os Vital Signs Date Time Temp Pulse Resp B/P B/P Pulse O2 O2 Flow FiO2 Mean Ox Delivery Rate 02/06 0648 97.5 88 20 136/84 94 Room Air 02/05 2221 97.8 96 20 120/76 94 Room Air 02/05 1451 98.7 82 20 112/70 95 Room Air Intake & Output 02/06 1600 02/06 0800 02/06 0000 02/05 1600 02/05 0800 02/05 0000 Intake Total 680 660 600 300 720 Output Total 700 Balance 680 660 600 300 20 Intake, Oral 680 660 600 300 720 Output, Urine 700 Patient 279 lb 283 lb Weight Weight Bed scale Bed scale Measurement Method Physical Exam: No distress Chest clear Heart regular rhythm, soft heart sounds, no murmurs Extremities no edema Current Medications: Current Medications Sig/Shelia Start time Last Medication Dose Route Stop Time Status Admin Bupropion HCl 150 MG BID 02/03 2100 AC 02/06 PO 0845 Calcium 600 MG 4 TIMES/DAY PRN 02/04 2345 AC PO Ergocalciferol 50,000 IU ONCE A WEEK 02/05 1615 AC 02/05 PO 03/26 1001 1854 Heparin Sodium 5,000 UNIT Q8 02/03 2200 AC 02/06 (Porcine) SC 0537 Insulin Aspart 0 TIDAC 02/04 0800 SC Magnesium Oxide 400 MG BID 02/06 0815 02/06 PO 0845 Magnesium Oxide 400 MG ONE ONE 02/05 1400 DC 02/05 PO 02/05 1401 1403 Magnesium Sulfate 1 GM ONCE ONE 02/06 0815 02/06 Dextrose/Water 100 ML IV 02/06 1214 0850 Omeprazole 20 MG DAILY AC 02/05 1615 AC 02/06 PO 0537 Oxycodone HCl 7.5 MG Q6P PRN 02/04 0430 DC 02/05 PO 1136 Oxycodone/ 1.5 TAB Q6-PRN PRN 02/05 1800 AC 02/06 Acetaminophen PO 0534 Oxycodone/ 1 TAB Q6P PRN 02/05 1415 DC Acetaminophen PO Results Last 48 Hrs of Labs/Mics: Laboratory Tests 02/06/18 0615: Anion Gap 15, Estimated GFR > 60, BUN/Creatinine Ratio 15.6, Magnesium 1.2 L 02/05/18 0623: Anion Gap 13, Estimated GFR > 60, BUN/Creatinine Ratio 15.0, Phosphorus 3.9, Magnesium 1.3 L, 25-OH Vitamin D Total 15.0 L 02/04/18 1310: Anion Gap 14, Estimated GFR > 60, BUN/Creatinine Ratio 16.0, Magnesium 1.4 L Recent Imaging Studies: CONCLUSIONS Left ventricular cavity size at the upper limits of normal. Mild concentric left ventricular hypertrophy. Visually estimated ejection fraction is 35-40%. Abnormal relaxation filling pattern of the left ventricle for age (stage 1 diastolic dysfunction). Left atrial size at the upper limits of normal. Mild thickening/calcification of the mitral valve leaflets. Mild mitral annular calcification. No mitral regurgitation. Focal thickening of the aortic valve cusps. No aortic stenosis. Right ventricular systolic pressure estimated to be within the normal range at 20-25 mmHg. The aortic arch and great vessels are not well seen. Nathan Weber M.D. (Electronically Signed) Final Date: 06 February 2018 10:23 Assessment/Plan Assessment/Plan Jeramie is stable for discharge at this time. His vital signs are normal. His renal function has improved. His echo still shows reduced left ventricular systolic function. I recommend sending him home on his Entresto. carvedilol at 25 mg twice daily and holding his diuretics for now. If he should develop edema or increasing shortness of breath we will restart his diuretics at that time. I have arranged to see him in the office in 1 week. Continue telemetry? Not applicable
--- NOTE | 2018-02-07 07:29 | Discharge Summary ---
Visit Information Visit Dates Admission Date: 02/03/18 Discharge Date: 02/06/18 Hospital Course Course Attending Physician: Lupe Avila MD Primary Care Physician: Wade Desouza MD Consulting Request: Consulting Specialty: Cardiology Consulting Physician: Dr. Gonzalez, Dr. Weber Hospital Course: Patient is a 58-year-old male with past medical history of heart failure with reduced ejection fraction of approximately 30-35% with dilated cardiomyopathy with no AICD currently on Entresto, coronary artery disease, hypertension, diabetes, depression, chronic back pain and neuropathic pain, history of morbid obesity status post recent gastric sleeve approximately one and half weeks prior to this admission presenting chief complaint of hypotension and malaise. Patient in the ED was found to have blood pressure of 58/40. Patient reported that he has been monitoring his blood pressure and has noticed decreased blood pressure over the past several days. On day of admission patient reported dizziness, lightheadedness. Patient reported that he recently had a gastric sleeve and is currently on a bariatric diet. Reports that he recently started his cardiac medications which include entresto and carvedilol. Also noted that he re-started lasix himself without discussing this with his core worker/pcp. Patient's labs were significant for creatinine of 1.9. Patient's hypotension and ALCIDES are attributed to his recent surgery, decreased PO intake and the introduction of Lasix in conjunction with metformin, ARB and other antihypertensive agents. Patient's hypotension and ALCIDES resolved with IV fluid hydration. Antihypertensives and diuretics were held this admission. Patient had a renal ultrasound which was normal. Patient was seen by cardiology. An ECHO was performed which showed an LVEF of 35 to 40% with reduced LV contractility, and stage 1 diastolic dysfunction. Patient's medications were adjusted: - Entresto was restarted - Carvedilol was reduced from 37.5mg BID to 25mg BID - Lasix was stopped - Eplerenon was stopped Due to ventricular ectopy patient was monitored on telemetry. Patient's electrolytes were monitored and repleted as needed. Patient was found to be persistently hypomagnesemic. Patient was discharged on Magnesium Oxide 400mg BID. Patient's vitamin D level was checked this admission and was found to be 15. He was started on vitamin D 50,000 IU weekly. Patient is currently status post gastrec sleeve on a stage [address] Dominique was contacted during his admission, patient can upgrade his diet to a puree starting on Monday, February 07. Patient is to call the office to make a follow up appointment. Patient reported chronic back pain. He is to continue Percocet TID as prescribed by his pain specialist. Patient requested pain medicine upon discharge. CTPMP was checked and patient had recently been prescribed percocet. No further pain medication was prescribed. Patient is to follow up with pain management. Allergies: Coded Allergies: NSAIDS (Non-Steroidal Anti-Inflamma (GASTRIC SLEEVE 02/03/18) Pertinent Lab Results: SERVICE DATE: 02/03/18 EXAM TYPE: RAD - XRY-PORTABLE CHEST XRAY EXAMINATION: XR PORTABLE CHEST CLINICAL INFORMATION: Dehydration. Fatigue and dizziness. COMPARISON: Chest x-ray from 01/16/2018. TECHNIQUE: Portable frontal view of the chest was obtained. FINDINGS: The lower portion of the left lung is excluded from view. The imaged portions of the lungs are aerated. No obvious pleural effusions are seen, though assessment is again limited due to incomplete visualization of the costophrenic sulci. The cardiac silhouette remains prominent. Mediastinal contours are normal. No acute osseous abnormality is seen. IMPRESSION: Slightly limited study with incomplete visualization of the costophrenic sulci and lower portion of the left lung base. Otherwise, no acute process. SERVICE DATE: 02/04/18 EXAM TYPE: US - US-RENAL/KIDNEY EXAMINATION: US RETROPERITONEAL COMPLETE (RENAL) CLINICAL INFORMATION: Rule out obstruction or structural abnormality. ALCIDES. COMPARISON: None TECHNIQUE: Real-time imaging of the kidneys and bladder. FINDINGS: RIGHT KIDNEY: 11.4 x 5 x 5.4 cm (SAG x AP x TRV). The kidney is normal in size, contour, and echogenicity. Renal cortical thickness is normal. No calculi or focal parenchymal lesions. No hydronephrosis. LEFT KIDNEY: 12.5 x 5.3 x 5.2 cm (SAG x AP x TRV). The kidney is normal in size, contour, and echogenicity. Renal cortical thickness is normal. No calculi or focal parenchymal lesions. No hydronephrosis. BLADDER: Partially distended. Bilateral ureteral jets are not demonstrated. Prevoid bladder volume is 318 mL. Postvoid bladder volume is 170 mL. IMPRESSION: Normal sonographic appearance of the kidneys, without hydronephrosis or discrete focal lesion. Moderate post void residual. SERVICE DATE: 02/05/18 EXAM TYPE: CARD - ECHOCARDIOGRAM FINDINGS Left Ventricle Left ventricular cavity size at the upper limits of normal. Mild concentric left ventricular hypertrophy. Left ventricular contractility is moderately reduced. Visually estimated ejection fraction is 35-40%. No obvious regional wall motion abnormalities. Abnormal relaxation filling pattern of the left ventricle for age (stage 1 diastolic dysfunction). Right Ventricle The right ventricle is normal in size and function. Right Atrium The right atrium is normal in size. Left Atrium Left atrial size at the upper limits of normal. Mitral Valve Mild thickening/calcification of the mitral valve leaflets. Mild mitral annular calcification. No mitral regurgitation. Aortic Valve Focal thickening of the aortic valve cusps. No aortic stenosis. No aortic regurgitation. Tricuspid Valve Trace tricuspid regurgitation. Right ventricular systolic pressure estimated to be within the normal range at 20-25 mmHg. Pulmonic Valve Pulmonic valve not well visualized, grossly normal. Trace pulmonic regurgitation. Pericardium Normal pericardium without effusion. No pleural effusion. Great Vessels Normal aortic root dimension. The aortic arch and great vessels are not well seen. CONCLUSIONS Left ventricular cavity size at the upper limits of normal. Mild concentric left ventricular hypertrophy. Visually estimated ejection fraction is 35-40%. Abnormal relaxation filling pattern of the left ventricle for age (stage 1 diastolic dysfunction). Left atrial size at the upper limits of normal. Mild thickening/calcification of the mitral valve leaflets. Mild mitral annular calcification. No mitral regurgitation. Focal thickening of the aortic valve cusps. No aortic stenosis. Right ventricular systolic pressure estimated to be within the normal range at 20-25 mmHg. The aortic arch and great vessels are not well seen. Nathan Weber M.D. (Electronically Signed) Final Date: 06 February 2018 10:23 MEASUREMENTS (Male / Female) Normal Values 2D ECHO LV Diastolic Diameter PLAX 5.4 cm 4.2 - 5.9 / 3.9 - 5.3 cm LV Systolic Diameter PLAX 4.1 cm 2.1 - 4.0 cm LV Fractional Shortening PLAX 24.1 % 25 - 46 % LV Ejection Fraction 2D Teich 47.5 % IVS Diastolic Thickness 1.2 cm LVPW Diastolic Thickness 1.2 cm LV Relative Wall Thickness 0.4 RV Internal Dim ED PLAX 2.1 cm 1.9 - 3.8 cm LVOT Diameter 2.3 cm Aortic Root Diameter 3.3 cm LA Systolic Diameter LX 3.7 cm 3.0 - 4.0 / 2.7 - 3.8 cm LA Volume 35.0 cm 18 - 58 / 22 - 52 cm Ascending Aorta Diameter 3.4 cm DOPPLER AV Peak Velocity 130.0 cm/s AV Peak Gradient 6.8 mmHg AV Mean Velocity 92.6 cm/s AV Mean Gradient 4.0 mmHg AV Velocity Time Integral 24.6 cm LVOT Peak Velocity 73.7 cm/s LVOT Peak Gradient 2.2 mmHg LVOT Mean Velocity 49.6 cm/s LVOT Mean Gradient 1.0 mmHg LVOT Velocity Time Integral 13.8 cm LVOT Stroke Volume 57.3 cm AV Area Cont Eq vti 2.3 cm AV Area Cont Eq pk 2.4 cm MV Peak Velocity 105.0 cm/s MV Peak Gradient 4.4 mmHg MV Mean Velocity 55.7 cm/s MV Mean Gradient 2.0 mmHg Mitral E Point Velocity 43.1 cm/s Mitral A Point Velocity 94.8 cm/s Mitral E to A Ratio 0.5 MV PHT Velocity 54.3 cm/s MV Deceleration Brown 224.0 cm/s MV Pressure Half Time 72.7 ms MV Area PHT 3.0 cm MV Deceleration Time 428.0 ms TR Peak Velocity 200.0 cm/s TR Peak Gradient 16.0 mmHg Right Atrial Pressure 5.0 mmHg Pulmonary Artery Systolic Pressu 21.0 mmHg Right Ventricular Systolic Press 21.0 mmHg PV Peak Velocity 85.8 cm/s PV Peak Gradient 2.9 mmHg PV Mean Velocity 59.9 cm/s PV Mean Gradient 2.0 mmHg PV Velocity Time Integral 16.8 cm LV E' Lateral Velocity 3.8 cm/s Mitral E to LV E' Lateral Ratio 11.4 LV E' Septal Velocity 10.2 cm/s Mitral E to LV E' Septal Ratio 4.2 Disposition Summary Disposition Principal Diagnosis: Hypotension and ALCIDES Additional Diagnosis: Hypomagnesemia, Vitamin D Deficiency, Chronic Back Pain, S/P Recent Gastric Sleeve Discharge Disposition: home or self care Discharge Instructions General Discharge Information Code Status: Full Code Patient's Diet: Bariatric Stage 2 Patient's Activity: Self-Limited Follow-Up Instructions/Appts: 1. Follow up with your core worker in 1 week 2. Follow up with your pcp within 1 week of discharge 3. Follow up with Dr. Dominique (bariatric surgeon) in 1 week 4. You may start a puree diet on 02/07 5. Note your medication changes and take only as directed 6. Pain management appointment on 02/07 Medications at Discharge Discharge Medications: Stop taking the following medications: Eplerenone (Eplerenone) 25 MG TABLET ORAL DAILY Qty = 90 Carvedilol (Carvedilol) 25 MG TABLET ORAL TWICE DAILY Qty = 270 Furosemide (Furosemide) 40 MG TABLET ORAL TWICE DAILY Qty = 180 Continue taking these medications: Bupropion HCl (Bupropion HCl Sr) 150 MG TABLET.ER 1 Tablet ORAL TWICE DAILY Qty = 180 Comments: Last Taken: 02/06/18 Time: 0800AM Pregabalin (Lyrica) 100 MG CAPSULE 1 Capsule ORAL DAILY Instructions: OPEN CAPSULE AND TAKE WITH APPLESAUCE OR EQUIVALENT FOOD Comments: NOT GIVEN IN HOSPITAL Metformin HCl (Metformin HCl) 500 MG TABLET 1 Tablet ORAL TWICE DAILY Lidocaine (Lidocaine) 5 % ADH..PATCH 1 Patch On the skin DAILY as needed for PAIN Qty = 30 Dapagliflozin Propanediol (Farxiga) 10 MG TABLET 1 Tablet ORAL DAILY Qty = 90 Sacubitril/Valsartan (Entresto 97 MG-103 MG Tablet) 97 MG-103 MG TABLET 1 Tablet ORAL TWICE DAILY Qty = 180 Oxycodone HCl/Acetaminophen (Percocet 7.5-325 MG Tablet) 7.5 MG-325 MG TABLET 1 Tablet ORAL 4 TIMES A DAY Qty = 120 Comments: Last Taken:02/06/18 Time:1130 Start taking the following new medications: Ergocalciferol (Vitamin D2) (Vitamin D2) 50,000 UNIT CAPSULE 50,000 International Unit ORAL ONCE A WEEK Qty = 6 No Refills Instructions: Please only take 1 tablet ONCE each week... Comments: Last Taken:02/05/18 Time:6PM Magnesium Oxide (Magnesium Oxide) 400 MG TABLET 1 Tablet ORAL TWICE DAILY Qty = 14 No Refills Instructions: .. Comments: Last Taken:02/06/18 Time:0800 Carvedilol (Carvedilol) 25 MG TABLET 1 Tablet ORAL TWICE DAILY Qty = 30 No Refills Instructions: .. Copies To: Jorge Dominique DO; Deo HANEY,Wade Vargas
== END 2018-02-06 12:52 | DRG 315 ==
LOC: ERH 14:10 → 1NO 16:11 → ERHI 16:11 → EDBEDREQ 21:20 → ENRESERV 22:10 → ENTRNSPT 22:39 → 1NO 22:53 → CMPTRNSPT 22:57 → 1NO 02-05 07:54 → ENPENDDIS 02-06 10:54 → ENTRNSPT 02-06 12:43 → EDTRNSPTSTS 02-06 12:46 → EDTRNSPT 02-06 12:46 → 1NO 02-06 12:52 → EDTRNSPT 02-06 12:54 → CMPTRNSPT 02-06 13:12
PROVIDERS: Physician Assistant
DX: I95.9 Hypotension, unspecified (principal); N17.9 Acute kidney failure, unspecified; I42.0 Dilated cardiomyopathy; E87.2 Acidosis; I50.22 Chronic systolic (congestive) heart failure; Z98.84 Bariatric surgery status; E83.42 Hypomagnesemia; I11.0 Hypertensive heart disease with heart failure; E66.01 Morbid (severe) obesity due to excess calories; Z68.38 Body mass index [BMI] 38.0-38.9, adult; I49.3 Ventricular premature depolarization; F31.9 Bipolar disorder, unspecified; E11.8 Type 2 diabetes mellitus with unspecified complications; Z79.84 Long term (current) use of oral hypoglycemic drugs; E11.40 Type 2 diabetes mellitus with diabetic neuropathy, unspecified; R42 Dizziness and giddiness; E86.0 Dehydration; T38.3X5A Adverse effect of insulin and oral hypoglycemic [antidiabetic] drugs, initial encounter; T50.1X5A Adverse effect of loop [high-ceiling] diuretics, initial encounter; G47.33 Obstructive sleep apnea (adult) (pediatric); T46.5X5A Adverse effect of other antihypertensive drugs, initial encounter; E87.6 Hypokalemia; M54.9 Dorsalgia, unspecified; M48.00 Spinal stenosis, site unspecified; I25.10 Atherosclerotic heart disease of native coronary artery without angina pectoris
CPT/HCPCS: 1NP; 84133; 84300; 36592; 71045; 76775; 82436; 82570; 93005; 93010; 93306; 96365; 96366; 96375; J0131; J1644; J3490; Q9957